=== PATIENT | female | born 1965 | race Two or more races ===

== ENCOUNTER 2024-05-19 11:28 | Inpatient (IN) | payer BC ==
--- NOTE | 2024-05-19 12:03 | ED ---
Abdominal Pain HPI - General Chief Complaint: Abdominal Pain Stated Complaint: abd pain Time Seen by Provider: 05/19/24 12:01 Source: patient, RN notes reviewed Mode of arrival: ambulatory Limitations: no limitations - History of Present Illness Initial Comments: This is a 59-year-old female who presents to the emergency department for abdominal pain. Patient reports right lower quadrant pain over the last 3 days. She has associated nausea, vomiting, and diarrhea. Reports occasional fevers as well. Pain does not radiate into the back. Denies any history of similar pain in the past. MD Complaint: abdominal pain - Related Data Home Medications Medication Instructions Recorded Confirmed Ibuprofen [Motrin Ib] 200 - 800 mg PO Q8H PRN 05/19/24 05/19/24 Allergies Allergy/AdvReac Type Severity Reaction Status Date / Time erythromycin base Allergy Rash/Hives Verified 05/19/24 14:58 Review of Systems ROS Statement: Those systems with pertinent positive or pertinent negative responses have been documented in the HPI. ROS Other: All systems not noted in ROS Statement are negative. Past Medical History Past Medical History: Rheumatoid Arthritis (RA) Past Surgical History: Section Smoking Status: Never smoker Past Alcohol Use History: None Reported Past Drug Use History: None Reported General Exam Limitations: no limitations General appearance: alert, in no apparent distress Head exam: Present: atraumatic, normocephalic, normal inspection Respiratory exam: Present: normal lung sounds bilaterally. Absent: respiratory distress, wheezes, rales, rhonchi, stridor Cardiovascular Exam: Present: regular rate, normal rhythm, normal heart sounds. Absent: systolic murmur, diastolic murmur, rubs, gallop, clicks GI/Abdominal exam: Present: soft, tenderness (RLQ), normal bowel sounds. Absent: distended Neurological exam: Present: alert, oriented X3, CN II-XII intact Psychiatric exam: Present: normal affect, normal mood Skin exam: Present: warm, dry, intact, normal color. Absent: rash Course Vital Signs 05/19/24 05/19/24 11:38 14:40 Temperature 98 F 97.9 F Pulse Rate 97 88 Respiratory 16 16 Rate Blood Pressure 151/77 142/76 O2 Sat by Pulse 97 94 L Oximetry Medical Decision Making - Medical Decision Making This is a 59 year old female who presents to the emergency department for abdominal pain. Was pt. sent in by a medical professional or institution? @ -No Did you speak to anyone other than the patient for history? @ -No Did you review nursing and triage notes? @ -Yes, and I agree, it is accurate with regards to the patient's symptoms. Were old charts reviewed? @ -No Differential Diagnosis? @ -Differential Abdominal Pain Women: Appendicitis, Cholecystitis, diverticulosis, ischemic bowel, pancreatitis, hepatitis, UTI, gastroenteritis, AAA, incarcerated hernia, bowel obstruction, constipation, inflammatory bowel, hepatitis, peptic ulcer disease, splenic infarction, perforated viscus, vulvitis, ovarian torsion, PID, kidney stone, placenta abruption, this is not meant to be an all-inclusive list EKG interpreted by me (3pts min.)? @ -EKG interpreted by me demonstrating the following: X-rays interpreted by me (1pt min.)? @ -Not obtained CT interpreted by me (1pt min.)? @ -CT scan of the abdomen and pelvis obtained. My interpretation identifies a fluid-filled appendix. U/S interpreted by me (1pt. min.)? @ -Not obtained What testing was considered but not performed? (CT, X-rays, U/S, labs)? Why? @ -None What meds were considered but not given? Why? @ -None Did you discuss the management of the patient with other professionals? @ -Yes, Dr. Ryder, who accepts the patient for admission. Did you reconcile home meds? @ -No Was smoking cessation discussed for >3mins.? @ -No Was critical care preformed (if so, how long)? @ -No Were there social determinants of health that impacted care today? How? (Homelessness, low income, unemployed, alcoholism, drug addiction, transportation, low edu. Level, literacy, decrease access to med. care, correction, rehab)? @ -No Was there de-escalation of care discussed even if they declined? (Discuss DNR or withdrawal of care, Hospice)? @ -No What co-morbidities impacted this encounter? (DM, HTN, Smoking, COPD, CAD, Cancer, CVA, Hep., AIDS, mental health diagnosis, sleep apnea, morbid obesity)? @ -None Was patient admitted / discharged? @ -Admitted. Lab work demonstrates mild leukocytosis and was otherwise fairly unremarkable. She has a mild elevation in bilirubin at 2.1. Urine suggests pyuria/UTI. Urine sent for culture. CT scan of the abdomen and pelvis obtained demonstrating acute appendicitis complicated by localized perforation. There is an early organizing fluid collection. No remote free air is visualized. Blood cultures obtained and the patient was started on Zosyn and maintenance fluids. Patient admitted to general surgery for further management and surgical intervention. She was kept NPO. Consult placed for medicine and infectious disease. Undiagnosed new problem with uncertain prognosis? @ -None Drug Therapy requiring intensive monitoring for toxicity (Heparin, Nitro, Insulin, Cardizem)? @ -None Were any procedures done? @ -None Diagnosis/symptom? @ -Perforated appendicitis Acute, or Chronic, or Acute on Chronic? @ -Acute Uncomplicated (without systemic symptoms) or Complicated (systemic symptoms)? @ -Complicated Side effects of treatment? @ -None Exacerbation, Progression, or Severe Exacerbation] @ -Not applicable Poses a threat to life or bodily function? @ -Yes, can lead to sepsis and This case was discussed in detail with the attending ED physician, Dr. Concepcion. Presentation, findings, and treatment plan discussed in detail as well. - Lab Data Result diagrams: 05/19/24 13:51 05/19/24 12:22 Lab Results 05/19/24 05/19/24 05/19/24 Range/Units 12:22 12:22 13:51 WBC 11.3 H (3.8-10.6) k/uL RBC 4.70 (3.80-5.40) m/uL Hgb 13.4 (11.4-16.0) gm/dL Hct 40.1 (34.0-46.0) % MCV 85.4 (80.0-100.0) fL MCH 28.6 (25.0-35.0) pg MCHC 33.5 (31.0-37.0) g/dL RDW 13.1 (11.5-15.5) % Plt Count 262 (150-450) k/uL MPV 7.3 Neutrophils % 79 % Lymphocytes % 12 % Monocytes % 6 % Eosinophils % 1 % Basophils % 0 % Neutrophils # 8.9 H (1.3-7.7) k/uL Lymphocytes # 1.4 (1.0-4.8) k/uL Monocytes # 0.7 (0-1.0) k/uL Eosinophils # 0.2 (0-0.7) k/uL Basophils # 0.0 (0-0.2) k/uL Sodium 137 (137-145) mmol/L Potassium 4.0 (3.5-5.1) mmol/L Chloride 104 (98-107) mmol/L Carbon Dioxide 18 L (22-30) mmol/L Anion Gap 15 mmol/L BUN 24 H (7-17) mg/dL Creatinine 0.54 (0.52-1.04) mg/dL Est GFR (CKD-EPI)AfAm >90 (>60 ml/min/1.73 sqM) Est GFR (CKD-EPI)NonAf >90 (>60 ml/min/1.73 sqM) Glucose 107 H (74-99) mg/dL Plasma Lactic Acid Asa (0.7-2.0) mmol/L Calcium 9.2 (8.4-10.2) mg/dL Total Bilirubin 2.1 H (0.2-1.3) mg/dL AST 21 (14-36) U/L ALT 15 (4-34) U/L Alkaline Phosphatase 113 (38-126) U/L Total Protein 8.1 (6.3-8.2) g/dL Albumin 4.2 (3.5-5.0) g/dL Amylase 50 (30-110) U/L Lipase 42 (23-300) U/L Urine Color Yellow Urine Appearance Cloudy H (Clear) Urine pH 6.5 (5.0-8.0) Ur Specific Redfield 1.029 (1.001-1.035) Urine Protein 2+ H (Negative) Urine Glucose (UA) Negative (Negative) Urine Ketones 3+ H (Negative) Urine Blood Trace H (Negative) Urine Nitrite Negative (Negative) Urine Bilirubin 1+ H (Negative) Urine Urobilinogen 3.0 (<2.0) mg/dL Ur Leukocyte Esterase Large H (Negative) Urine RBC 3 (0-5) /hpf Urine WBC 82 H (0-5) /hpf Ur Squamous Epith Cells 3 (0-4) /hpf Urine Mucus Many H (None) /hpf 05/19/24 Range/Units 13:51 WBC (3.8-10.6) k/uL RBC (3.80-5.40) m/uL Hgb (11.4-16.0) gm/dL Hct (34.0-46.0) % MCV (80.0-100.0) fL MCH (25.0-35.0) pg MCHC (31.0-37.0) g/dL RDW (11.5-15.5) % Plt Count (150-450) k/uL MPV Neutrophils % % Lymphocytes % % Monocytes % % Eosinophils % % Basophils % % Neutrophils # (1.3-7.7) k/uL Lymphocytes # (1.0-4.8) k/uL Monocytes # (0-1.0) k/uL Eosinophils # (0-0.7) k/uL Basophils # (0-0.2) k/uL Sodium (137-145) mmol/L Potassium (3.5-5.1) mmol/L Chloride (98-107) mmol/L Carbon Dioxide (22-30) mmol/L Anion Gap mmol/L BUN (7-17) mg/dL Creatinine (0.52-1.04) mg/dL Est GFR (CKD-EPI)AfAm (>60 ml/min/1.73 sqM) Est GFR (CKD-EPI)NonAf (>60 ml/min/1.73 sqM) Glucose (74-99) mg/dL Plasma Lactic Acid Asa 1.1 (0.7-2.0) mmol/L Calcium (8.4-10.2) mg/dL Total Bilirubin (0.2-1.3) mg/dL AST (14-36) U/L ALT (4-34) U/L Alkaline Phosphatase (38-126) U/L Total Protein (6.3-8.2) g/dL Albumin (3.5-5.0) g/dL Amylase (30-110) U/L Lipase (23-300) U/L Urine Color Urine Appearance (Clear) Urine pH (5.0-8.0) Ur Specific Redfield (1.001-1.035) Urine Protein (Negative) Urine Glucose (UA) (Negative) Urine Ketones (Negative) Urine Blood (Negative) Urine Nitrite (Negative) Urine Bilirubin (Negative) Urine Urobilinogen (<2.0) mg/dL Ur Leukocyte Esterase (Negative) Urine RBC (0-5) /hpf Urine WBC (0-5) /hpf Ur Squamous Epith Cells (0-4) /hpf Urine Mucus (None) /hpf - Radiology Data Radiology results: report reviewed, image reviewed Disposition Clinical Impression: Appendicitis with perforation Disposition: ADMITTED IP TO THIS HOSP
[2024-05-19 12:47] LABS: Appearance,Urine Cloudy (Clear); Bilirubin,Urine 1+ (Negative); Blood,Urine Trace (Negative); Color,Urine Yellow; Glucose,Urine (UA) Negative (Negative); Ketones,Urine 3+ (Negative); Leukocyte Esterase,Urine Large (Negative); Mucus,Urine Many /hpf; Nitrite,Urine Negative (Negative); PH, Urine 6.5 (5.0-8.0); Protein,Urine 2+ (Negative); RBC,Urine 3 /hpf (0-5); Specific Gravity,Urine 1.029 (1.001-1.035); Squamous Epithelial Cell,Urine 3 /hpf (0-4); WBC,Urine 82 /hpf (0-5)
[2024-05-19 13:08] LABS: ALT 15 U/L (4-34); AST 21 U/L (14-36); African American GFR (CKD) >90 (>60 ml/min/1.73 sqM); Albumin 4.2 g/dL (3.5-5.0); Alkaline Phosphatase 113 U/L (38-126); Amylase 50 U/L (30-110); Anion Gap 15 mmol/L; Blood Urea Nitrogen 24 mg/dL (7-17); Calcium 9.2 mg/dL (8.4-10.2); Carbon Dioxide 18 mmol/L (22-30); Chloride 104 mmol/L (98-107); Glucose 107 mg/dL (74-99); Lipase 42 U/L (23-300); Non-African American GFR(CKD) >90 (>60 ml/min/1.73 sqM); Sodium 137 mmol/L (137-145); Total Bilirubin 2.1 mg/dL (0.2-1.3); Total Protein 8.1 g/dL (6.3-8.2)
[2024-05-19] MEDS: SODIUM CHLORIDE 0.9% 1,000 ML IV STA ×3 (13:54→18:38)
[2024-05-19] MEDS: ONDANSETRON 4 MG/2 ML VIAL IVP STA (13:57)
[2024-05-19] MEDS: KETOROLAC 15 MG/ML 1 ML VIAL IVP STA (14:00)
[2024-05-19 14:04] LABS: Basophils % (A) 0 %; Eosinophils # (A) 0.2 k/uL (0-0.7); Eosinophils % (A) 1 %; HCT 40.1 % (34.0-46.0); HGB 13.4 gm/dL (11.4-16.0); Lymphocytes # (A) 1.4 k/uL (1.0-4.8); Lymphocytes % (A) 12 %; MCH 28.6 pg (25.0-35.0); MCHC 33.5 g/dL (31.0-37.0); MCV 85.4 fL (80.0-100.0); Mean Platelet Volume 7.3; Monocytes # (A) 0.7 k/uL (0-1.0); Monocytes % (A) 6 %; Neutrophils # (A) 8.9 k/uL (1.3-7.7); Neutrophils % (A) 79 %; Platelet Count 262 k/uL (150-450); RDW 13.1 % (11.5-15.5); WBC 11.3 k/uL (3.8-10.6)
--- NOTE | 2024-05-19 14:19 | CT ---
EXAMINATION TYPE: CT abdomen pelvis w con DATE OF EXAM: 05/19/2024 COMPARISON: NONE HISTORY: 59-year-old female RLQ pain TECHNIQUE: Contiguous axial scanning of the abdomen and pelvis following administration of 100 ml Iso marli 300 IV contrast. Delayed images through the kidneys and coronal/sagittal reconstructions perform ed. CT DLP: 2261.8 mGycm Automated exposure control for dose reduction was used. FINDINGS: The heart is normal size without pericardial effusion. Strandy atelectasis/scarring at the lower lobe s. No pleural effusion. Liver borderline enlarged at 17.3 cm. Low attenuation of the hepatic parenchyma suggesting some under lying fatty infiltration. Tiny 5 mm hypodensity anterior mid liver probably a tiny cyst. Gallbladder hydropic at 5.0 cm wide but without any surrounding inflammation. Probably relates to fas ting state. Portal venous system is patent. No biliary ductal dilatation. Adrenal glands, kidneys, spleen, and pancreas within normal limits. Retroaortic left renal vein. No dilated small bowel, free fluid, or free air. Some tracking edema and moderate inflammation locali zes to the right lower quadrant where the appendix is abnormal, thickened, fluid-filled with a 7 mm a ppendicolith at the base of the appendix and with some devascularization of the appendiceal wall near the tip. There is a local perforation and fluid collection measuring 5.5 x 2.1 x 3.2 cm. The treadwell a re not well-defined at this time. Bladder is collapsed. Uterus retroverted. Both ovaries are visualized. No abnormal fluid collection i n the pelvis or pelvic lymphadenopathy. Bones: Hypertrophic facet arthropathy mid to lower lumbar spine with degenerative grade 1 anterolisth esis L5-S1. IMPRESSION: EXAM POSITIVE FOR ACUTE APPENDICITIS. COMPLICATED BY LOCALIZED PERFORATION. EARLY ORGANIZING FLUID CO LLECTION MEASURING 5.5 X 2.1 X 2.2 CM. NO REMOTE FREE AIR IS SEEN.
[2024-05-19] MEDS ORDERED: HYDROmorphone 0.5 MG/0.5 ML SYRINGE IVP PRN ×2 (14:32→16:52)
[2024-05-19] MEDS ORDERED: ONDANSETRON 4 MG/2 ML VIAL IVP PRN (14:32)
[2024-05-19] MEDS ORDERED: NALOXONE 0.4 MG/ML 1 ML VIAL IV PRN ×2 (14:32→16:52)
[2024-05-19] MEDS ORDERED: ACETAMINOPHEN IV (For NPO) 1,000 MG in EMPTY BAG 1 BAG IVPB PRN (14:39)
[2024-05-19] MEDS: MORPHINE SULFATE 4 MG/ML SYRINGE IVP STA (14:51)
[2024-05-19] MEDS: IV FLUID CONTINUATION 1,000 ML IV ONE (15:06)
--- NOTE | 2024-05-19 15:31 | P.GSHP ---
History of Present Illness H&P Date: 05/19/24 Chief Complaint: Appendicitis This is a 59-year-old female with a 4-day history of bilateral quadrant pain gerd patient was seen emergency room. Her CAT scan suggestive of appendicitis. There is question there may be perforation of the tip of the appendix. Past Medical History Past Medical History: Rheumatoid Arthritis (RA) Past Surgical History: Section Smoking Status: Never smoker Past Alcohol Use History: None Reported Past Drug Use History: None Reported Medications and Allergies Home Medications Medication Instructions Recorded Confirmed Type Ibuprofen [Motrin Ib] 200 - 800 mg PO Q8H PRN 05/19/24 05/19/24 History Allergies Allergy/AdvReac Type Severity Reaction Status Date / Time erythromycin base Allergy Rash/Hives Verified 05/19/24 14:58 Surgical - Exam Vital Signs Temp Pulse Resp BP Pulse Ox 98 F 97 16 151/77 97 05/19/24 11:38 05/19/24 11:38 05/19/24 11:38 05/19/24 11:38 05/19/24 11:38 - General well developed, well nourished, no distress - Eyes PERRL - ENT normal pinna - Neck no masses - Respiratory normal expansion - Cardiovascular Rhythm: regular - Abdomen Abdomen: soft, non tender Results - Labs 05/19/24 13:51 05/19/24 12:22 Abnormal Lab Results - Last 24 Hours (Table) 05/19/24 05/19/24 05/19/24 Range/Units 12:22 12:22 13:51 WBC 11.3 H (3.8-10.6) k/uL Neutrophils # 8.9 H (1.3-7.7) k/uL Carbon Dioxide 18 L (22-30) mmol/L BUN 24 H (7-17) mg/dL Glucose 107 H (74-99) mg/dL Total Bilirubin 2.1 H (0.2-1.3) mg/dL Urine Appearance Cloudy H (Clear) Urine Protein 2+ H (Negative) Urine Ketones 3+ H (Negative) Urine Blood Trace H (Negative) Urine Bilirubin 1+ H (Negative) Ur Leukocyte Esterase Large H (Negative) Urine WBC 82 H (0-5) /hpf Urine Mucus Many H (None) /hpf Diabetes panel 05/19/24 Range/Units 12:22 Sodium 137 (137-145) mmol/L Potassium 4.0 (3.5-5.1) mmol/L Chloride 104 (98-107) mmol/L Carbon Dioxide 18 L (22-30) mmol/L BUN 24 H (7-17) mg/dL Creatinine 0.54 (0.52-1.04) mg/dL Glucose 107 H (74-99) mg/dL Calcium 9.2 (8.4-10.2) mg/dL AST 21 (14-36) U/L ALT 15 (4-34) U/L Alkaline Phosphatase 113 (38-126) U/L Total Protein 8.1 (6.3-8.2) g/dL Albumin 4.2 (3.5-5.0) g/dL Calcium panel 05/19/24 Range/Units 12:22 Calcium 9.2 (8.4-10.2) mg/dL Albumin 4.2 (3.5-5.0) g/dL Pituitary panel 05/19/24 Range/Units 12:22 Sodium 137 (137-145) mmol/L Potassium 4.0 (3.5-5.1) mmol/L Chloride 104 (98-107) mmol/L Carbon Dioxide 18 L (22-30) mmol/L BUN 24 H (7-17) mg/dL Creatinine 0.54 (0.52-1.04) mg/dL Glucose 107 H (74-99) mg/dL Calcium 9.2 (8.4-10.2) mg/dL Adrenal panel 05/19/24 Range/Units 12:22 Sodium 137 (137-145) mmol/L Potassium 4.0 (3.5-5.1) mmol/L Chloride 104 (98-107) mmol/L Carbon Dioxide 18 L (22-30) mmol/L BUN 24 H (7-17) mg/dL Creatinine 0.54 (0.52-1.04) mg/dL Glucose 107 H (74-99) mg/dL Calcium 9.2 (8.4-10.2) mg/dL Total Bilirubin 2.1 H (0.2-1.3) mg/dL AST 21 (14-36) U/L ALT 15 (4-34) U/L Alkaline Phosphatase 113 (38-126) U/L Total Protein 8.1 (6.3-8.2) g/dL Albumin 4.2 (3.5-5.0) g/dL Assessment and Plan Assessment: Acute appendicitis with possible rupture. Patient be scheduled for laparoscopic appendectomy
[2024-05-19] MEDS: HEPARIN SODIUM,PORCINE 5,000 UNIT/ML 1 ML VIAL SQ STA (15:33)
[2024-05-19] MEDS ORDERED: fentaNYL (PF) 50 MCG/ML 2 ML AMP ONE (15:52)
[2024-05-19] MEDS ORDERED: PROPOFOL 10 MG/ML 20 ML VIAL IV ONE (15:52)
[2024-05-19] MEDS ORDERED: NEOSTIGMINE 1 MG/ML 10 ML VIAL ONE (15:52)
[2024-05-19] MEDS: LIDOCAINE 1%-EPI 1:100,000 20 ML VIAL SQ ONE ×2 (15:52→16:17)
[2024-05-19] MEDS ORDERED: GLYCOPYRROLATE 0.2 MG/ML 2 ML VIAL ONE (15:52)
[2024-05-19] MEDS ORDERED: SUCCINYLCHOLINE CHLORIDE 200 MG/10 ML VIAL IV ONE (15:52)
[2024-05-19] MEDS ORDERED: MIDAZOLAM 2 MG/2 ML VIAL ONE (15:52)
[2024-05-19] MEDS ORDERED: ROCURONIUM 10 MG/ML (5 ML VIAL) IV ONE (15:52)
[2024-05-19] MEDS ORDERED: LIDOCAINE 1% INJ 10MG/ML (20 ML MDV) ONE (15:52)
[2024-05-19] MEDS ORDERED: HYDROmorphone (PF) 1 MG/ML ONE (15:52)
[2024-05-19] MEDS: SODIUM CHLORIDE 0.9% 100 ML with ceFAZolin 2,000 MG IV ONE (15:57)
[2024-05-19] MEDS: LACTATED RINGERS 1,000 ML IV ONE (16:24)
[2024-05-19] MEDS ORDERED: ACETAMINOPHEN TAB 325 MG TAB PO PRN (16:52)
[2024-05-19] MEDS ORDERED: HYDROmorphone 1 MG/ML 1 ML SYRINGE IVP PRN (16:52)
--- NOTE | 2024-05-19 16:52 | P.OP ---
Date of Procedure: 05/19/24 Preoperative Diagnosis: Acute appendicitis Postoperative Diagnosis: Perforated acute appendicitis with abscess Procedure(s) Performed: Open appendectomy Anesthesia: DENNIS Surgeon: Brant Ryder Estimated Blood Loss (ml): 25 Pathology: other (Appendix, culture) Condition: stable Disposition: PACU Description of Procedure: The patient placed on the operative table in the supine position. She received general endotracheal tube anesthesia. Her abdomen was prepped and draped in the usual sterile fashion. A supraumbilical skin incision was made. And then using a pair of Kamila clamps the fascia was grasped. And then the Veress needle was positioned in the peritoneal cavity. Position of the Veress needle confirmed with a positive drop test. The abs insufflated. After adequate insufflation a 5 mm trocar was placed in the para cavity. The abdomen was viewed. There is inflammatory change of the right lower quadrant. A second 10 mm trocar was placed in the epigastric position. The omentum was peeled away from the abdominal wall. There was an abscess cavity entered. 3. Reperforation appendix. At this point the procedure was converted to an open procedure. The trocars were withdrawn. The skin was incised the midline. Then use electrocautery to abdominal wall was divided. Then the abdominal wall retractor placed the wound. The cecum was mobilized towards midline. And then the appendix was visualized. There appeared to be gangrenous appendicitis with perforation. The area was cultured. Using the harmonic scissors the mesoappendix was divided. And then the inflammatory changes extended to the base of the cecum. A portion of healthy cecum was taken with the appendix. The cecum was divided with the YASMIN stapler. The abdomen. There is no bleeding seen. A MARY drain was placed in the right lower quadrant. This was brought out through an epigastric stab incision. The fascia was closed with looped #1 PDS suture. Skin was closed kelly. And then the Prevena wound system was placed on top of the close stable skin. Patient was sent to recovery room in stable condition.
[2024-05-19] MEDS: HYDROmorphone 0.5 MG/0.5 ML SYRINGE IVP PRN (17:27)
[2024-05-19] MEDS: LACTATED RINGERS 1,000 ML IV SCH (18:10)
[2024-05-19] MEDS: PIPERACILLIN-TAZOBACTAM 3.375 GM in SODIUM CHLORIDE 0.9% 100 ML IVPB SCH (18:37)
[2024-05-19] MEDS: KETOROLAC 15 MG/ML 1 ML VIAL IVP SCH (18:38)
[2024-05-19] MEDS: HYDROmorphone 1 MG/ML 1 ML SYRINGE IVP PRN (18:54)
[2024-05-19] MEDS: HYDROcodone/APAP 5-325MG 1 EACH TAB PO PRN (19:51)
[2024-05-19 19:59] LABS: Partial Thromboplastin Time 25.2 sec (22.0-30.0)
--- NOTE | 2024-05-19 23:51 | P.CONS ---
History of Present Illness - Reason for Consult Consult date: 05/19/24 Postoperative medical management - Chief Complaint Abdominal pain - History of Present Illness 59-year-old female with history of rheumatoid arthritis Patient coming in with 3-day history of progressive worsening abdominal pain associated with nausea vomiting and diarrhea upon further evaluation in the ED she was found to have perforated appendicitis for which she was admitted to general surgery she underwent laparotomy tolerated well no observed immediate postoperative complications currently had a wound VAC in place and MARY drain patient continues to be n.p.o. has not passed bowel movement yet patient has not urinated yet She reports that pain is well-tolerated denies any chest pain trouble breathing Patient denies tobacco smoking illicit drugs or heavy alcohol review of systems Pertinent positives as noted in HPI. All other systems were reviewed and are negative on exam Constitutional: No acute distress, conversant, pleasant Eyes: Anicteric sclerae, moist conjunctiva, Pupils equal round reactive to light ENMT: NC/AT Oropharynx clear, no erythema, or exudates Neck: Supple, no masses, or JVD No carotid bruits No thyromegaly Lungs: Clear to auscultation Clear to percussion Normal respiratory effort, no accessory muscle use Cardiovascular: Heart regular in rate and rhythm, No murmurs, gallops, or rubs No peripheral edema Abdominal: Soft Nontender, no guarding, rebound or rigidity Bowel sounds negative Wound VAC in place over laparotomy incision MARY drain in place half filled with bloody tinged fluid Extremities: No digital cyanosis No clubbing Pedal pulses intact and symmetrical Radial pulses intact and symmetrical No calf tenderness Psychiatric: Alert and oriented to person, place and time Appropriate affect fair judgement Neuro Muscles Strength 5/5 in all 4 extremities Sensation to light touch grossly present throughout Cranial nerves II-XII grossly intact Past Medical History Past Medical History: Rheumatoid Arthritis (RA) Past Surgical History: Section Smoking Status: Never smoker Past Alcohol Use History: None Reported Past Drug Use History: None Reported Medications and Allergies Home Medications Medication Instructions Recorded Confirmed Type Ibuprofen [Motrin Ib] 200 - 800 mg PO Q8H PRN 05/19/24 05/19/24 History Allergies Allergy/AdvReac Type Severity Reaction Status Date / Time erythromycin base Allergy Rash/Hives Verified 05/19/24 14:58 Physical Exam Vitals: Vital Signs Temp Pulse Pulse Resp BP BP Pulse Ox 05/19/24 19:45 17 05/19/24 18:39 97.7 F 87 18 147/80 97 05/19/24 18:03 78 12 144/66 96 05/19/24 17:48 75 12 132/64 96 05/19/24 17:33 74 12 133/60 97 05/19/24 17:18 79 16 134/65 100 05/19/24 17:03 97.2 F L 91 16 126/66 99 05/19/24 15:04 97.1 F L 94 18 135/68 96 05/19/24 14:40 97.9 F 88 16 142/76 94 L 05/19/24 11:38 98 F 97 16 151/77 97 Intake and Output 05/19/24 05/19/24 05/20/24 14:59 22:59 06:59 Intake Total 1250 Output Total 10 460 Balance 1240 -460 Intake: IV 1250 Output: Drainage 60 Right Abdomen 60 Urine 400 Straight 400 Estimated Blood Loss 10 Other: Weight 117.934 kg 117.934 kg Results CBC & Chem 7: 05/19/24 13:51 05/19/24 12:22 Labs: Abnormal Lab Results - Last 24 Hours (Table) 05/19/24 05/19/24 05/19/24 Range/Units 12:22 12:22 13:51 WBC 11.3 H (3.8-10.6) k/uL Neutrophils # 8.9 H (1.3-7.7) k/uL Carbon Dioxide 18 L (22-30) mmol/L BUN 24 H (7-17) mg/dL Glucose 107 H (74-99) mg/dL Total Bilirubin 2.1 H (0.2-1.3) mg/dL Urine Appearance Cloudy H (Clear) Urine Protein 2+ H (Negative) Urine Ketones 3+ H (Negative) Urine Blood Trace H (Negative) Urine Bilirubin 1+ H (Negative) Ur Leukocyte Esterase Large H (Negative) Urine WBC 82 H (0-5) /hpf Urine Mucus Many H (None) /hpf Assessment and Plan Assessment: Acute perforated appendicitis status post laparotomy and appendectomy postoperative day 0 Management per general surgery team Continue with antibiotics with Zosyn 3.375 IV piggyback every 8 hours Status post 2 L boluses of normal saline continue with normal saline at 130 cc/h Continue with Protonix 40 mg IV daily Symptomatic control of nausea vomiting with Zofran as needed Pain control with Dilaudid as needed DVT prophylaxis with Lovenox 40 mg subcu daily Tylenol as needed for fever Blood work reviewed White count elevated 11.3 most likely secondary to underlying appendicitis Hemoglobin unremarkable 13.4 Renal function unremarkable sodium 137 potassium 4 BUN [address] of the abdomen done in the ED showed positive acute appendicitis complicated by localized perforation along with early organizing fluid collection measuring 5 x 2 x 2 cm No free air seen Overall patient stable from medical standpoint Thank you for this consultation
[2024-05-19] MEDS ORDERED: BENZOCAINE/MENTHOL LOZENG 1 EACH LOZENGE MUCOUS MEM PRN (23:52)
--- NOTE | 2024-05-20 07:07 | P.CONS ---
History of Present Illness - Reason for Consult Consult date: 05/19/24 Perforated appendicitis Requesting physician: Ursula Ortiz - Chief Complaint Abdominal pain x 3 days - History of Present Illness Patient is a 59-year-old female with a past medical history significant for rheumatoid arthritis presenting to the hospital this afternoon for evaluation of abdominal pain patient pain has been in the right lower quadrant for the last 3 days before presentation to the hospital patient was describing the pain to be sharp intensity moderate to severe with some radiation to the back did have associated nausea and vomiting diarrhea and also have some fever with the send the patient has been evaluated by the ER physician on arriv al to the ER patient was afebrile no fever have recorded subsequently patient was nontachycardic hypotensive or hypoxic patient did have a white count of 11.3 creatinine 0.54 electrolytes normal liver enzymes normal urine has been mildly positive patient did have a abdominal pelvis CT concerning for acute appendicitis complicated by localized perforation early organizing fluid collection measuring 5.5 X2.1X 2.2 cm patient has been taken to the OR and the patient is s/p open appendectomy and drainage of the abscess patient has been started on Zosyn admitted to hospital infectious disease was consulted for further management of antibiotic therapy Review of Systems Positive point and negatives has been mentioned in the HPI, complete review of systems was performed and all other systems are negative Past Medical History Past Medical History: Rheumatoid Arthritis (RA) Past Surgical History: Section Smoking Status: Never smoker Past Alcohol Use History: None Reported Past Drug Use History: None Reported Medications and Allergies Home Medications Medication Instructions Recorded Confirmed Type Ibuprofen [Motrin Ib] 200 - 800 mg PO Q8H PRN 05/19/24 05/19/24 History Allergies Allergy/AdvReac Type Severity Reaction Status Date / Time erythromycin base Allergy Rash/Hives Verified 05/19/24 14:58 Physical Exam Vitals: Vital Signs Temp Pulse Pulse Resp BP BP Pulse Ox 05/19/24 15:04 97.1 F L 94 18 135/68 96 05/19/24 14:40 97.9 F 88 16 142/76 94 L 05/19/24 11:38 98 F 97 16 151/77 97 Intake and Output 05/19/24 05/19/24 05/19/24 06:59 14:59 22:59 Intake Total 1100 Output Total 10 Balance 1090 Intake: IV 1100 Output: Estimated Blood Loss 10 Other: Weight 117.934 kg GENERAL DESCRIPTION: Middle-aged female lying in bed, no distress. No tachypnea or accessory muscle of respiration use. HEENT: Shows Pallor , no scleral icterus. Oral mucous membrane is dry. No phary ngeal erythema or thrush NECK: Trachea central, no thyromegaly. LUNGS: Unlabored breathing. Clear to auscultation anteriorly. No wheeze or crackle. HEART: S1, S2, regular rate and rhythm. No loud murmur ABDOMEN: Soft, mild distention and tenderness EXTREMITIES: No edema of feet. SKIN: No rash, no masses palpable. NEUROLOGICAL: The patient is awake, alert, oriented x3, mood and affect normal. Results CBC & Chem 7: 05/19/24 13:51 05/19/24 12:22 Labs: Abnormal Lab Results - Last 24 Hours (Table) 05/19/24 05/19/24 05/19/24 Range/Units 12:22 12:22 13:51 WBC 11.3 H (3.8-10.6) k/uL Neutrophils # 8.9 H (1.3-7.7) k/uL Carbon Dioxide 18 L (22-30) mmol/L BUN 24 H (7-17) mg/dL Glucose 107 H (74-99) mg/dL Total Bilirubin 2.1 H (0.2-1.3) mg/dL Urine Appearance Cloudy H (Clear) Urine Protein 2+ H (Negative) Urine Ketones 3+ H (Negative) Urine Blood Trace H (Negative) Urine Bilirubin 1+ H (Negative) Ur Leukocyte Esterase Large H (Negative) Urine WBC 82 H (0-5) /hpf Urine Mucus Many H (None) /hpf Assessment and Plan (1) Peritonitis Current Visit: Yes Status: Acute Code(s): K65.9 - PERITONITIS, UNSPECIFIED SNOMED Code(s): 08992069 (2) Intra-abdominal abscess Current Visit: Yes Status: Acute Code(s): K65.1 - PERITONEAL ABSCESS SNOMED Code(s): 63344387 (3) Erythromycin allergy Current Visit: Yes Status: Acute Code(s): Z88.1 - ALLERGY STATUS TO OTHER ANTIBIOTIC AGENTS SNOMED Code(s): 79119779 (4) Appendicitis with perforation Current Visit: Yes Status: Acute Code(s): K35.32 - AC APPENDICITIS W PERF, LOC PERITONITIS, & GANGR, W/O ABSCS SNOMED Code(s): 40319478 Plan: 1patient presenting to hospital with abdominal pain x 3 days and this patient has been diagnosed with a perforated appendicitis and periappendiceal abscess status post open appendectomy and drainage of the abscess we will need to cover for the enteric gram-negative both anaerobes and anaerobes to the likely pathogen 2-Zosyn 3.375 g every 8 hours should provide adequate antibiotic therapy empirically while waiting for the culture to finalize We will follow on clinical condition and cultures to further adjust medication if needed Thank you for this consultation we will follow the patient along with you Dictation was produced using [employer] dictation software. please excuse any grammatical, word or spelling errors. Time with Patient: Greater than 30
[2024-05-20] MEDS: ENOXAPARIN 40 MG/0.4 ML SYRINGE SQ SCH (09:00)
[2024-05-20] MEDS: PANTOPRAZOLE 40 MG/10 ML VIAL IV SCH (09:00)
[2024-05-20 10:08] LABS: Basophils % (A) 0 %; Eosinophils % (A) 0 %; HCT 36.2 % (34.0-46.0); HGB 11.9 gm/dL (11.4-16.0); Lymphocytes # (A) 0.7 k/uL (1.0-4.8); Lymphocytes % (A) 8 %; MCH 28.7 pg (25.0-35.0); MCHC 32.7 g/dL (31.0-37.0); MCV 87.7 fL (80.0-100.0); Mean Platelet Volume 7.4; Monocytes # (A) 0.7 k/uL (0-1.0); Monocytes % (A) 7 %; Neutrophils # (A) 7.9 k/uL (1.3-7.7); Neutrophils % (A) 82 %; Platelet Count 254 k/uL (150-450); RBC 4.13 m/uL (3.80-5.40); RDW 13.3 % (11.5-15.5); WBC 9.6 k/uL (3.8-10.6)
[2024-05-20 10:24] LABS: African American GFR (CKD) >90 (>60 ml/min/1.73 sqM); Anion Gap 8 mmol/L; Blood Urea Nitrogen 23 mg/dL (7-17); Calcium 8.1 mg/dL (8.4-10.2); Carbon Dioxide 22 mmol/L (22-30); Chloride 107 mmol/L (98-107); Glucose 118 mg/dL (74-99); Magnesium 1.9 mg/dL (1.6-2.3); Non-African American GFR(CKD) >90 (>60 ml/min/1.73 sqM); Potassium 3.6 mmol/L (3.5-5.1); Sodium 137 mmol/L (137-145)
--- NOTE | 2024-05-20 11:35 | P.PN ---
Subjective Progress Note Date: 05/20/24 No new complaints today. Patient denies fevers. She does report some chills. She reports some nausea. She reports abdominal pain. Gen: In NAD, non-toxic HEENT: normocephalic, atraumatic, hearing acuity is intant, mucous membranes moist CVS: perfusing all extremities well, no pitting edema, Respiratory: symmetric chest expansion, no accessory muscle use, GI: soft, diffuse tenderness to palpation, ND, : no suprapubic tenderness, no CVA tenderness MSK/Derm: no rashes, cyanosis Neuro: CN II-XII intact, no motor weakness, Psych: cooperative, euthymic mood, judgment and insight is intact Hospital workup: Blood work reviewed White count elevated 11.3 most likely secondary to underlying appendicitis Hemoglobin unremarkable 13.4 Renal function unremarkable sodium 137 potassium 4 BUN [address] of the abdomen done in the ED showed positive acute appendicitis complicated by localized perforation along with early organizing fluid collection measuring 5 x 2 x 2 cm No free air seen Assessment/plan: Acute perforated appendicitis status post laparotomy and appendectomy postoperat ino day 1 Management per general surgery team Continue with antibiotics with Zosyn 3.375 IV piggyback every 8 hours, pending microbiology Status post 2 L boluses of normal saline continue with normal saline at 130 cc/h Continue with Protonix 40 mg IV daily Symptomatic control of nausea vomiting with Zofran as needed Pain control with Dilaudid as needed MARY drain still appears to have mixture of serosanguineous fluid and pus DVT prophylaxis with Lovenox 40 mg subcu daily Tylenol as needed for fever Overall patient stable from medical standpoint Thank you for this consultation Objective - Vital Signs Vital signs: Vital Signs Temp 98.9 F 05/20/24 07:20 Pulse 96 05/20/24 07:20 Resp 18 05/20/24 07:20 BP 110/65 05/20/24 07:20 Pulse Ox 94 L 05/20/24 07:20 FiO2 Intake & Output 05/19/24 05/20/24 05/20/24 18:59 06:59 18:59 Intake Total 1250 Output Total 10 460 30 Balance 1240 -460 -30 Weight 117.934 kg 117.934 kg Intake: IV 1250 Output: Drainage 60 30 Right Abdomen 60 30 Urine 400 Straight 400 Estimated Blood Loss 10 Other: # Voids 1 - Labs CBC & Chem 7: 05/20/24 09:32 05/20/24 09:32 Labs: Abnormal Lab Results - Last 24 Hours (Table) 05/19/24 05/19/24 05/19/24 Range/Units 12:22 12:22 13:51 WBC 11.3 H (3.8-10.6) k/uL Neutrophils # 8.9 H (1.3-7.7) k/uL Lymphocytes # (1.0-4.8) k/uL Carbon Dioxide 18 L (22-30) mmol/L BUN 24 H (7-17) mg/dL Glucose 107 H (74-99) mg/dL Calcium (8.4-10.2) mg/dL Total Bilirubin 2.1 H (0.2-1.3) mg/dL Urine Appearance Cloudy H (Clear) Urine Protein 2+ H (Negative) Urine Ketones 3+ H (Negative) Urine Blood Trace H (Negative) Urine Bilirubin 1+ H (Negative) Ur Leukocyte Esterase Large H (Negative) Urine WBC 82 H (0-5) /hpf Urine Mucus Many H (None) /hpf 05/20/24 05/20/24 Range/Units 09:32 09:32 WBC (3.8-10.6) k/uL Neutrophils # 7.9 H (1.3-7.7) k/uL Lymphocytes # 0.7 L (1.0-4.8) k/uL Carbon Dioxide (22-30) mmol/L BUN 23 H (7-17) mg/dL Glucose 118 H (74-99) mg/dL Calcium 8.1 L (8.4-10.2) mg/dL Total Bilirubin (0.2-1.3) mg/dL Urine Appearance (Clear) Urine Protein (Negative) Urine Ketones (Negative) Urine Blood (Negative) Urine Bilirubin (Negative) Ur Leukocyte Esterase (Negative) Urine WBC (0-5) /hpf Urine Mucus (None) /hpf Microbiology - Last 24 Hours (Table) 05/19/24 16:45 Gram Stain - Preliminary Abdomen
--- NOTE | 2024-05-20 12:19 | P.PN ---
Subjective Progress Note Date: 05/20/24 Patient states she feels tired. She has minimal complaints of pain. On exam vital signs appear stable. Abdomen is soft. Incision is clean dry intact. Status post open appendectomy for acute gangrenous appendicitis with perforation. Patient will continue receive IV antibiotics. We will advance her to clear liquids today. Objective - Vital Signs Vital signs: Vital Signs Temp 98.9 F 05/20/24 07:20 Pulse 96 05/20/24 07:20 Resp 18 05/20/24 07:20 BP 110/65 05/20/24 07:20 Pulse Ox 94 L 05/20/24 07:20 FiO2 Intake & Output 05/19/24 05/20/24 05/20/24 18:59 06:59 18:59 Intake Total 1250 Output Total 10 460 30 Balance 1240 -460 -30 Weight 117.934 kg 117.934 kg Intake: IV 1250 Output: Drainage 60 30 Right Abdomen 60 30 Urine 400 Straight 400 Estimated Blood Loss 10 Other: # Voids 1 - Labs CBC & Chem 7: 05/20/24 09:32 05/20/24 09:32 Labs: Abnormal Lab Results - Last 24 Hours (Table) 05/19/24 05/19/24 05/19/24 Range/Units 12:22 12:22 13:51 WBC 11.3 H (3.8-10.6) k/uL Neutrophils # 8.9 H (1.3-7.7) k/uL Lymphocytes # (1.0-4.8) k/uL Carbon Dioxide 18 L (22-30) mmol/L BUN 24 H (7-17) mg/dL Glucose 107 H (74-99) mg/dL Calcium (8.4-10.2) mg/dL Total Bilirubin 2.1 H (0.2-1.3) mg/dL Urine Appearance Cloudy H (Clear) Urine Protein 2+ H (Negative) Urine Ketones 3+ H (Negative) Urine Blood Trace H (Negative) Urine Bilirubin 1+ H (Negative) Ur Leukocyte Esterase Large H (Negative) Urine WBC 82 H (0-5) /hpf Urine Mucus Many H (None) /hpf 05/20/24 05/20/24 Range/Units 09:32 09:32 WBC (3.8-10.6) k/uL Neutrophils # 7.9 H (1.3-7.7) k/uL Lymphocytes # 0.7 L (1.0-4.8) k/uL Carbon Dioxide (22-30) mmol/L BUN 23 H (7-17) mg/dL Glucose 118 H (74-99) mg/dL Calcium 8.1 L (8.4-10.2) mg/dL Total Bilirubin (0.2-1.3) mg/dL Urine Appearance (Clear) Urine Protein (Negative) Urine Ketones (Negative) Urine Blood (Negative) Urine Bilirubin (Negative) Ur Leukocyte Esterase (Negative) Urine WBC (0-5) /hpf Urine Mucus (None) /hpf Microbiology - Last 24 Hours (Table) 05/19/24 16:45 Gram Stain - Preliminary Abdomen
--- NOTE | 2024-05-20 12:41 | P.PN ---
Subjective Progress Note Date: 05/20/24 Principal diagnosis: Reason for follow-up is perforated appendicitis intra-abdominal abscess Patient is a 59-year-old female with a past medical history significant for rheumatoid arthritis presenting to the hospital with 3-day history of abdominal pain has been diagnosed with a ruptured appendicitis status post open appendectomy and drainage of the abscess. On today's evaluation that is 05/20/2024,the patient denies any fever or any chills, patient is breathing comfortably on room air, the patient denies chest pain shortness of breath and no significant cough, patient abdominal pain slightly decreased intensity controlled with the pain medication no nausea no vomiting no bowel movement. Patient white normalized to 9.6, creatinine 0.59 abdominal cultures currently pending Objective - Vital Signs Vital signs: Vital Signs Temp 98.9 F 05/20/24 07:20 Pulse 96 05/20/24 07:20 Resp 18 05/20/24 07:20 BP 110/65 05/20/24 07:20 Pulse Ox 94 L 05/20/24 07:20 FiO2 Intake & Output 05/19/24 05/20/24 05/20/24 18:59 06:59 18:59 Intake Total 1250 Output Total 10 460 30 Balance 1240 -460 -30 Weight 117.934 kg 117.934 kg Intake: IV 1250 Output: Drainage 60 30 Right Abdomen 60 30 Urine 400 Straight 400 Estimated Blood Loss 10 Other: # Voids 1 - Exam GENERAL DESCRIPTION: Middle-aged female lying in bed in no distress RESPIRATORY SYSTEM: Unlabored breathing , decreased breath sounds at bases HEART: S1 S2 regular rate and rhythm , ABDOMEN: Soft , mild distention and tenderness EXTREMITIES: No edema feet - Labs CBC & Chem 7: 05/20/24 09:32 05/20/24 09:32 Labs: Abnormal Lab Results - Last 24 Hours (Table) 05/19/24 05/19/24 05/19/24 Range/Units 12:22 12:22 13:51 WBC 11.3 H (3.8-10.6) k/uL Neutrophils # 8.9 H (1.3-7.7) k/uL Lymphocytes # (1.0-4.8) k/uL Carbon Dioxide 18 L (22-30) mmol/L BUN 24 H (7-17) mg/dL Glucose 107 H (74-99) mg/dL Calcium (8.4-10.2) mg/dL Total Bilirubin 2.1 H (0.2-1.3) mg/dL Urine Appearance Cloudy H (Clear) Urine Protein 2+ H (Negative) Urine Ketones 3+ H (Negative) Urine Blood Trace H (Negative) Urine Bilirubin 1+ H (Negative) Ur Leukocyte Esterase Large H (Negative) Urine WBC 82 H (0-5) /hpf Urine Mucus Many H (None) /hpf 05/20/24 05/20/24 Range/Units 09:32 09:32 WBC (3.8-10.6) k/uL Neutrophils # 7.9 H (1.3-7.7) k/uL Lymphocytes # 0.7 L (1.0-4.8) k/uL Carbon Dioxide (22-30) mmol/L BUN 23 H (7-17) mg/dL Glucose 118 H (74-99) mg/dL Calcium 8.1 L (8.4-10.2) mg/dL Total Bilirubin (0.2-1.3) mg/dL Urine Appearance (Clear) Urine Protein (Negative) Urine Ketones (Negative) Urine Blood (Negative) Urine Bilirubin (Negative) Ur Leukocyte Esterase (Negative) Urine WBC (0-5) /hpf Urine Mucus (None) /hpf Microbiology - Last 24 Hours (Table) 05/19/24 16:45 Gram Stain - Preliminary Abdomen Assessment and Plan (1) Peritonitis Current Visit: Yes Status: Acute Code(s): K65.9 - PERITONITIS, UNSPECIFIED SNOMED Code(s): 39040335 (2) Intra-abdominal abscess Current Visit: Yes Status: Acute Code(s): K65.1 - PERITONEAL ABSCESS SNOMED Code(s): 75270241 (3) Erythromycin allergy Current Visit: Yes Status: Acute Code(s): Z88.1 - ALLERGY STATUS TO OTHER ANTIBIOTIC AGENTS SNOMED Code(s): 64499218 (4) Appendicitis with perforation Current Visit: Yes Status: Acute Code(s): K35.32 - AC APPENDICITIS W PERF, LOC PERITONITIS, & GANGR, W/O ABSCS SNOMED Code(s): 09875002 Plan: 1patient presenting to hospital with abdominal pain x 3 days and this patient has been diagnosed with a perforated appendicitis and periappendiceal abscess status post open appendectomy and drainage of the abscess we will need to cover for the enteric gram-negative both anaerobes and anaerobes to the likely pathogen 2-patient afebrile white count normalized, patient to continue with Zosyn 3.375 g every 8 hours while waiting for the culture to finalize Question concerns were answered Dictation was produced using [employer] dictation software. please excuse any grammatical, word or spelling errors. Time with Patient: Less than 30
[2024-05-20] MEDS: MELATONIN 5 MG TABLET PO SCH (21:23)
[2024-05-21] MEDS: ONDANSETRON 4 MG/2 ML VIAL IVP PRN (00:13)
[2024-05-21 08:47] LABS: Basophils # (A) 0.06 X 10*3/uL (0.00-0.10); Basophils % (A) 0.5 %; Eosinophils # (A) 0.16 X 10*3/uL (0.04-0.35); Eosinophils % (A) 1.2 %; HCT 36.5 % (37.2-46.3); HGB 12.4 g/dL (12.0-15.0); Lymphocytes # (A) 1.46 X 10*3/uL (0.90-5.00); Lymphocytes % (A) 11.1 %; MCH 28.2 pg (27.0-32.0); Mean Platelet Volume 10.1 FL (9.5-12.2); Monocytes # (A) 1.09 X 10*3/uL (0.20-1.00); Monocytes % (A) 8.3 %; NRBC Per 100 WBC 0 X 10*3/uL (0.00-0.01); Neutrophils # (A) 10.35 X 10*3/uL (1.80-7.70); Neutrophils % (A) 78.3 %; Platelet Count 249 X 10*3/uL (140-440); RDW 13.7 % (11.5-14.5)
[2024-05-21 09:03] LABS: BUN/Creat Ratio 29.43 Ratio (12.00-20.00); Blood Urea Nitrogen 20.6 mg/dL (9.0-27.0); Calcium 8.4 mg/dL (8.7-10.3); Chloride 101 mmol/L (96-109); Glucose 124 mg/dL (70-110); Potassium 4.1 mmol/L (3.5-5.5); Sodium 133 mmol/L (135-145)
--- NOTE | 2024-05-21 09:35 | P.PN ---
Subjective Progress Note Date: 05/21/24 Patient reports that she had more abdominal pain last night, and her MARY drain started draining more than normal. She reports that she had to have her MARY drain emptied approximately 4-5 times overnight. Her nausea had resolved by this morning, patient is able to ambulate and tolerate a clear liquid diet. But she reports she has not yet had flatus or bowel movement. She does deny fevers, chills. Microbiology still pending on this patient. Gen: In NAD, non-toxic HEENT: normocephalic, atraumatic, hearing acuity is intant, mucous membranes moist CVS: perfusing all extremities well, no pitting edema, Respiratory: symmetric chest expansion, no accessory muscle use, GI: soft, diffuse tenderness to palpation, ND, : no suprapubic tenderness, no CVA tenderness MSK/Derm: no rashes, cyanosis Neuro: CN II-XII intact, no motor weakness, Psych: cooperative, euthymic mood, judgment and insight is intact Hospital workup: Blood work reviewed White count elevated 11.3 most likely secondary to underlying appendicitis Hemoglobin unremarkable 13.4 Renal function unremarkable sodium 137 potassium 4 BUN [address] of the abdomen done in the ED showed positive acute appendicitis complicated by localized perforation along with early organizing fluid collection measuring 5 x 2 x 2 cm No free air seen Assessment/plan: Acute perforated appendicitis status post laparotomy and appendectomy postoperative day 1 Management per general surgery team Continue with antibiotics with Zosyn 3.375 IV piggyback every 8 hours, pending microbiology Status post 2 L boluses of normal saline continue with normal saline at 130 cc/h Continue with Protonix 40 mg IV daily Symptomatic control of nausea vomiting with Zofran as needed Pain control with Dilaudid as needed MARY drain still appears to have mixture of serosanguineous fluid and pus DVT prophylaxis with Lovenox 40 mg subcu daily Tylenol as needed for fever Thank you for this consultation Objective - Vital Signs Vital signs: Vital Signs Temp 98.1 F 05/21/24 07:11 Pulse 89 05/21/24 07:11 Resp 18 05/21/24 07:11 BP 108/68 05/21/24 07:11 Pulse Ox 93 L 05/21/24 07:11 FiO2 Intake & Output 05/20/24 05/21/24 05/21/24 18:59 06:59 18:59 Output Total 30 220 Balance -30 -220 Output: Drainage 30 220 Right Abdomen 30 220 Other: # Voids 2 1 - Labs CBC & Chem 7: 05/21/24 06:12 05/21/24 06:12 Labs: Abnormal Lab Results - Last 24 Hours (Table) 05/20/24 05/20/24 05/21/24 Range/Units 09:32 09:32 06:12 WBC 13.20 H (4.50-10.00) X 10*3/uL Hct 36.5 L (37.2-46.3) % Immature Gran # 0.08 H (0.00-0.04) X 10*3/uL Neutrophils # 7.9 H 10.35 H (1.3-7.7) k/uL Lymphocytes # 0.7 L (1.0-4.8) k/uL Monocytes # 1.09 H (0.20-1.00) X 10*3/uL Sodium (135-145) mmol/L Carbon Dioxide (21.6-31.8) mmol/L BUN 23 H (7-17) mg/dL BUN/Creatinine Ratio (12.00-20.00) Ratio Glucose 118 H (74-99) mg/dL Calcium 8.1 L (8.4-10.2) mg/dL 05/21/24 Range/Units 06:12 WBC (4.50-10.00) X 10*3/uL Hct (37.2-46.3) % Immature Gran # (0.00-0.04) X 10*3/uL Neutrophils # (1.3-7.7) k/uL Lymphocytes # (1.0-4.8) k/uL Monocytes # (0.20-1.00) X 10*3/uL Sodium 133 L (135-145) mmol/L Carbon Dioxide 21.0 L (21.6-31.8) mmol/L BUN (7-17) mg/dL BUN/Creatinine Ratio 29.43 H (12.00-20.00) Ratio Glucose 124 H (74-99) mg/dL Calcium 8.4 L (8.4-10.2) mg/dL Microbiology - Last 24 Hours (Table) 05/19/24 19:16 Blood Culture - Preliminary Blood 05/19/24 19:16 Blood Culture - Preliminary Blood 05/19/24 16:45 Gram Stain - Preliminary Abdomen Wound Culture - Preliminary Gram Neg Bacilli 05/19/24 12:22 Urine Culture - Final Urine,Clean Catch
--- NOTE | 2024-05-21 12:28 | P.PN ---
Subjective Progress Note Date: 05/21/24 CHIEF COMPLAINT: Acute perforated appendicitis with abscess HISTORY OF PRESENT ILLNESS: Patient is postop day #2 status post open appendectomy. Patient had pain and nausea for about 12:00 midnight to 3 in the morning. No vomiting. Patient reports she started to have increased output through her MARY drain there is a total of 220 mL output through the night. MARY drain color is less cloudy per patient. She reports that the MARY drain did get emptied about 4-6 times last night. She reports this morning her pain is less. She denies any flatus or BM. No vomiting. PHYSICAL EXAM: VITAL SIGNS: Reviewed. GENERAL: Well-developed in no acute distress. ABDOMEN: Soft. Nondistended. Mild tenderness with palpation. [place] wound VAC intact with small area of saturation noted at distal portion of the [place] NEUROLOGIC: Alert and oriented. Cranial nerves II through XII grossly intact. ASSESSMENT: 1. Acute perforated appendicitis with abscess PLAN: -Continue to monitor MARY drain output -Continue IV antibiotics -Continue clear liquid diet for today -Encourage patient to ambulate -Encourage patient to use incentive spirometer -Continue pain management -Awaiting cultures to finalize -DVT prophylaxis Lovenox Physician Loading Dock Helper note has been reviewed by physician. Signing provider agrees with the documented findings, assessment, and plan of care. I have personally seen and examined the patient, reviewed the TAXATION CONSULTANT /PAs history, exam and MDM and agree with the assessment and plan as written. Based on total visit time, I have performed more than 50% of the visit. As above: Patient says her pain is improved today. Tolerating clear liquids. No flatus. Some nausea earlier today. No vomiting. MARY output serous. Labs noted. Culture showing gram-negative bacilli. Continue antibiotics. Gradually increase activity. Advance diet once ileus demonstrates improvement. Objective - Vital Signs Vital signs: Vital Signs Temp 98.1 F 05/21/24 07:11 Pulse 89 05/21/24 07:11 Resp 18 05/21/24 07:11 BP 108/68 05/21/24 07:11 Pulse Ox 93 L 05/21/24 07:11 FiO2 Intake & Output 05/20/24 05/21/24 05/21/24 18:59 06:59 18:59 Output Total 30 220 Balance -30 -220 Output: Drainage 30 220 Right Abdomen 30 220 Other: # Voids 2 1 - Labs CBC & Chem 7: 05/21/24 06:12 05/21/24 06:12 Labs: Abnormal Lab Results - Last 24 Hours (Table) 05/21/24 05/21/24 Range/Units 06:12 06:12 WBC 13.20 H (4.50-10.00) X 10*3/uL Hct 36.5 L (37.2-46.3) % Immature Gran # 0.08 H (0.00-0.04) X 10*3/uL Neutrophils # 10.35 H (1.80-7.70) X 10*3/uL Monocytes # 1.09 H (0.20-1.00) X 10*3/uL Sodium 133 L (135-145) mmol/L Carbon Dioxide 21.0 L (21.6-31.8) mmol/L BUN/Creatinine Ratio 29.43 H (12.00-20.00) Ratio Glucose 124 H (70-110) mg/dL Calcium 8.4 L (8.7-10.3) mg/dL Microbiology - Last 24 Hours (Table) 05/19/24 19:16 Blood Culture - Preliminary Blood 05/19/24 19:16 Blood Culture - Preliminary Blood 05/19/24 16:45 Gram Stain - Preliminary Abdomen Wound Culture - Preliminary Gram Neg Bacilli 05/19/24 12:22 Urine Culture - Final Urine,Clean Catch
[2024-05-22] MEDS: KETOROLAC 15 MG/ML 1 ML VIAL IVP STA (01:09)
[2024-05-22 09:24] LABS: African American GFR (CKD) >90 (>60 ml/min/1.73 sqM); Anion Gap 11 mmol/L; Blood Urea Nitrogen 21 mg/dL (7-17); Calcium 8.5 mg/dL (8.4-10.2); Carbon Dioxide 17 mmol/L (22-30); Chloride 104 mmol/L (98-107); Glucose 128 mg/dL (74-99); Non-African American GFR(CKD) >90 (>60 ml/min/1.73 sqM); Sodium 132 mmol/L (137-145)
[2024-05-22 09:43] LABS: Basophils % (A) 0 %; Eosinophils # (A) 0.3 k/uL (0-0.7); Eosinophils % (A) 2 %; HCT 41.8 % (34.0-46.0); HGB 13.5 gm/dL (11.4-16.0); Lymphocytes # (A) 1.3 k/uL (1.0-4.8); Lymphocytes % (A) 9 %; MCH 28.8 pg (25.0-35.0); MCHC 32.4 g/dL (31.0-37.0); MCV 88.7 fL (80.0-100.0); Mean Platelet Volume 8.6; Monocytes # (A) 0.7 k/uL (0-1.0); Monocytes % (A) 5 %; Neutrophils # (A) 11.1 k/uL (1.3-7.7); Neutrophils % (A) 82 %; Platelet Count 282 k/uL (150-450); RBC 4.71 m/uL (3.80-5.40); RDW 13.7 % (11.5-15.5); WBC 13.6 k/uL (3.8-10.6)
[2024-05-22] MEDS: AMPICILLIN-SULBACTAM 3 GM in SODIUM CHLORIDE 0.9% 100 ML IVPB SCH (13:20)
--- NOTE | 2024-05-22 15:40 | P.PN ---
Subjective Progress Note Date: 05/21/24 Principal diagnosis: Reason for follow-up is perforated appendicitis intra-abdominal abscess Patient is a 59-year-old female with a past medical history significant for rheumatoid arthritis presenting to the hospital with 3-day history of abdominal pain has been diagnosed with a ruptured appendicitis status post open appendectomy and drainage of the abscess. On today's evaluation that is 05/21/2024,the patient remains to be afebrile, patient is on room air not requiring supplemental oxygen and denies any shortness of breath no chest pain or cough.Patient has been complaining of feeling nauseated and abdominal discomfort did not have a bowel movement not passing any gas. Patient white count is 13.20 creatinine 0.7 Objective - Vital Signs Vital signs: Vital Signs Temp 98.1 F 05/21/24 07:11 Pulse 89 05/21/24 07:11 Resp 18 05/21/24 07:11 BP 108/68 05/21/24 07:11 Pulse Ox 93 L 05/21/24 07:11 FiO2 Intake & Output 05/20/24 05/21/24 05/21/24 18:59 06:59 18:59 Output Total 30 220 Balance -30 -220 Output: Drainage 30 220 Right Abdomen 30 220 Other: # Voids 2 1 - Exam GENERAL DESCRIPTION: Middle-aged female lying in bed in no distress RESPIRATORY SYSTEM: Unlabored breathing , decreased breath sounds at bases HEART: S1 S2 regular rate and rhythm , ABDOMEN: Soft , mild distention and tenderness EXTREMITIES: No edema feet - Labs CBC & Chem 7: 05/22/24 08:49 05/22/24 08:44 Labs: Abnormal Lab Results - Last 24 Hours (Table) 05/21/24 05/21/24 Range/Units 06:12 06:12 WBC 13.20 H (4.50-10.00) X 10*3/uL Hct 36.5 L (37.2-46.3) % Immature Gran # 0.08 H (0.00-0.04) X 10*3/uL Neutrophils # 10.35 H (1.80-7.70) X 10*3/uL Monocytes # 1.09 H (0.20-1.00) X 10*3/uL Sodium 133 L (135-145) mmol/L Carbon Dioxide 21.0 L (21.6-31.8) mmol/L BUN/Creatinine Ratio 29.43 H (12.00-20.00) Ratio Glucose 124 H (70-110) mg/dL Calcium 8.4 L (8.7-10.3) mg/dL Microbiology - Last 24 Hours (Table) 05/19/24 19:16 Blood Culture - Preliminary Blood 05/19/24 19:16 Blood Culture - Preliminary Blood 05/19/24 16:45 Gram Stain - Preliminary Abdomen Wound Culture - Preliminary Gram Neg Bacilli 05/19/24 12:22 Urine Culture - Final Urine,Clean Catch Assessment and Plan (1) Peritonitis Current Visit: Yes Status: Acute Code(s): K65.9 - PERITONITIS, UNSPECIFIED SNOMED Code(s): 34021866 (2) Intra-abdominal abscess Current Visit: Yes Status: Acute Code(s): K65.1 - PERITONEAL ABSCESS SNOMED Code(s): 06376777 (3) Erythromycin allergy Current Visit: Yes Status: Acute Code(s): Z88.1 - ALLERGY STATUS TO OTHER ANTIBIOTIC AGENTS SNOMED Code(s): 23333116 (4) Appendicitis with perforation Current Visit: Yes Status: Acute Code(s): K35.32 - AC APPENDICITIS W PERF, LOC PERITONITIS, & GANGR, W/O ABSCS SNOMED Code(s): 28274081 Plan: 1patient presenting to hospital with abdominal pain x 3 days and this patient has been diagnosed with a perforated appendicitis and periappendiceal abscess status post open appendectomy and drainage of the abscess we will need to cover for the enteric gram-negative both anaerobes and anaerobes to the likely pathogen 2-patient afebrile white count slightly up today that we will monitor closely for now continue with Zosyn repeat CBC with a.m. lab Dictation was produced using [employer] dictation software. please excuse any grammatical, word or spelling errors.
--- NOTE | 2024-05-22 15:41 | P.PN ---
Subjective Progress Note Date: 05/22/24 Principal diagnosis: Reason for follow-up is perforated appendicitis intra-abdominal abscess Patient is a 59-year-old female with a past medical history significant for rheumatoid arthritis presenting to the hospital with 3-day history of abdominal pain has been diagnosed with a ruptured appendicitis status post open appendectomy and drainage of the abscess. On today's evaluation that is 05/22/2024, the patient continues to be afebrile, the patient is on room air and breathing comfortably, the Pt denies having any chest pain or cough, the patient has been complaining of feeling nauseated with associated abdominal discomfort did not have any bowel movement. Patient white count is 13.6 abdominal culture finalized with E. coli that is a sensitive pathogen as well as Bacteroides fragilis Objective - Vital Signs Vital signs: Vital Signs Temp 98.2 F 05/22/24 07:53 Pulse 88 05/22/24 07:53 Resp 17 05/22/24 07:53 BP 114/75 05/22/24 07:53 Pulse Ox 95 05/22/24 07:53 FiO2 Intake & Output 05/21/24 05/22/24 05/22/24 18:59 06:59 18:59 Output Total 485 760 120 Balance -485 -760 -120 Output: Drainage 485 760 120 Right Abdomen 485 760 120 Other: # Voids 1 2 - Exam GENERAL DESCRIPTION: Middle-aged female lying in bed in no distress RESPIRATORY SYSTEM: Unlabored breathing , decreased breath sounds at bases HEART: S1 S2 regular rate and rhythm , ABDOMEN: Soft , mild distention and tenderness EXTREMITIES: No edema feet - Labs CBC & Chem 7: 05/22/24 08:49 05/22/24 08:44 Labs: Abnormal Lab Results - Last 24 Hours (Table) 05/22/24 05/22/24 Range/Units 08:44 08:49 WBC 13.6 H (3.8-10.6) k/uL Neutrophils # 11.1 H (1.3-7.7) k/uL Sodium 132 L (137-145) mmol/L Carbon Dioxide 17 L (22-30) mmol/L BUN 21 H (7-17) mg/dL Glucose 128 H (74-99) mg/dL Microbiology - Last 24 Hours (Table) 05/19/24 19:16 Blood Culture - Preliminary Blood 05/19/24 19:16 Blood Culture - Preliminary Blood 05/19/24 16:45 Anaerobic Culture - Final Abdomen Bacteroides fragilis Parvimonas micra 05/19/24 16:45 Gram Stain - Final Abdomen Wound Culture - Final Escherichia coli Assessment and Plan (1) Peritonitis Current Visit: Yes Status: Acute Code(s): K65.9 - PERITONITIS, UNSPECIFIED SNOMED Code(s): 25498216 (2) Intra-abdominal abscess Current Visit: Yes Status: Acute Code(s): K65.1 - PERITONEAL ABSCESS SNOMED Code(s): 77249287 (3) Erythromycin allergy Current Visit: Yes Status: Acute Code(s): Z88.1 - ALLERGY STATUS TO OTHER ANTIBIOTIC AGENTS SNOMED Code(s): 62287821 (4) Appendicitis with perforation Current Visit: Yes Status: Acute Code(s): K35.32 - AC APPENDICITIS W PERF, LOC PERITONITIS, & GANGR, W/O ABSCS SNOMED Code(s): 43178134 Plan: 1patient presenting to hospital with abdominal pain x 3 days and this patient has been diagnosed with a perforated appendicitis and periappendiceal abscess status post open appendectomy and drainage of the abscess we will need to cover for the enteric gram-negative both anaerobes and anaerobes to the likely pathogen 2-patient afebrile patient abdominal culture finalized with an E. coli that is a sensitive pathogen and Bacteroides we will adjust antibiotic therapy to Unasyn still having nausea and not having any bowel movement and need to be monitored closely while inpatient Dictation was produced using [employer] dictation software. please excuse any grammatical, word or spelling errors. Time with Patient: Less than 30
--- NOTE | 2024-05-22 15:54 | P.PN ---
Subjective Progress Note Date: 05/22/24 CHIEF COMPLAINT: Acute perforated appendicitis with abscess HISTORY OF PRESENT ILLNESS: Patient is postop day #3 status post open appendectomy. Patient had episode of vomiting this morning. She is having flatus. No bowel movement. Nursing staff notified me that patient was having bleeding in the pre-Bohne wound VAC tubing and dressing was saturated. Also, patient having a large amount of MARY drain output 760 mL throughout the night and 120 this morning. Color is more serous and cloudy. Afebrile. Vital stable. WBC 13.6 Hgb 13.5 culture grew E. coli and bacteroids. Antibiotics adjusted per infectious disease. PHYSICAL EXAM: VITAL SIGNS: Reviewed. GENERAL: Well-developed in no acute distress. ABDOMEN: Soft. Mildly distended. Mild tenderness more on the right of the incision. Octaviano on a wound VAC removed. Large blood clot noted along the incision connected at the umbilicus. Clot was removed. No further bleeding noted. NEUROLOGIC: Alert and oriented. Cranial nerves II through XII grossly intact. ASSESSMENT: 1. Acute perforated appendicitis with abscess 2. Leukocytosis PLAN: -MARY drain with large amount of output. Check creatinine and fluid level -Continue to monitor MARY drain output -Continue antibiotics per ID service -Advance diet to full liquids -Encourage patient to ambulate -Encourage patient to use incentive spirometer -Continue pain management -DVT prophylaxis Lovenox Physician Yarn Comber note has been reviewed by physician. Signing provider agrees with the documented findings, assessment, and plan of care. I have personally seen and examined the patient, reviewed the GYRO COMPASS TESTER /PAs history, exam and MDM and agree with the assessment and plan as written. Based on total visit time, I have performed more than 50% of the visit. As above: Patient was having some blood under the dressing. When I examined her in the chair there was some oozing coming from the umbilical region. I had the patient lay down in bed and evaluated the incision near the umbilical region. No active bleeding seen. The base of the umbilicus was packed with a cotton gauze. A gentle pressure dressing was applied and ice was placed beneath the binder. Continue to monitor for recurrent bleeding. Continue sips of liquids for now given patient's complaints of nausea and ongoing ileus. MARY drain to be sent for creatinine level given high output. Objective - Vital Signs Vital signs: Vital Signs Temp 98.4 F 05/22/24 14:00 Pulse 92 05/22/24 14:00 Resp 17 05/22/24 14:00 BP 112/75 05/22/24 14:00 Pulse Ox 95 05/22/24 14:00 FiO2 Intake & Output 05/21/24 05/22/24 05/22/24 18:59 06:59 18:59 Output Total 485 760 260 Balance -485 -760 -260 Output: Drainage 485 760 260 Right Abdomen 485 760 260 Other: # Voids 1 2 - Labs CBC & Chem 7: 05/22/24 08:49 05/22/24 08:44 Labs: Abnormal Lab Results - Last 24 Hours (Table) 05/22/24 05/22/24 Range/Units 08:44 08:49 WBC 13.6 H (3.8-10.6) k/uL Neutrophils # 11.1 H (1.3-7.7) k/uL Sodium 132 L (137-145) mmol/L Carbon Dioxide 17 L (22-30) mmol/L BUN 21 H (7-17) mg/dL Glucose 128 H (74-99) mg/dL Microbiology - Last 24 Hours (Table) 05/19/24 19:16 Blood Culture - Preliminary Blood 05/19/24 19:16 Blood Culture - Preliminary Blood 05/19/24 16:45 Anaerobic Culture - Final Abdomen Bacteroides fragilis Parvimonas micra 05/19/24 16:45 Gram Stain - Final Abdomen Wound Culture - Final Escherichia coli
--- NOTE | 2024-05-22 15:58 | P.PN ---
Subjective Progress Note Date: 05/22/24 Subjective Patient seen this morning. She is complaining of some abdominal pain. Daughter was at bedside. Daughter is requesting if her mother can get an abdominal binder. I told him that I will defer to surgery. 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 coli, Bacteroides fragilis, parvimonas micra Infectious disease switched the patient from IV Zosyn to IV Unasyn. ID will switch the patient to oral abx when the patient is able to tolerate p.o. intake Patient WBC slightly elevated at 13.6. Patient otherwise is afebrile. DVT prophylaxis with Lovenox 40 mg subcu daily Tylenol as needed for fever Thank you for this consultation Objective - Vital Signs Vital signs: Vital Signs Temp 98.4 F 05/22/24 14:00 Pulse 92 05/22/24 14:00 Resp 17 05/22/24 14:00 BP 112/75 05/22/24 14:00 Pulse Ox 95 05/22/24 14:00 FiO2 Intake & Output 05/21/24 05/22/24 05/22/24 18:59 06:59 18:59 Output Total 485 760 260 Balance -485 -760 -260 Output: Drainage 485 760 260 Right Abdomen 485 760 260 Other: # Voids 1 2 - Labs CBC & Chem 7: 05/22/24 08:49 05/22/24 08:44 Labs: Abnormal Lab Results - Last 24 Hours (Table) 05/22/24 05/22/24 Range/Units 08:44 08:49 WBC 13.6 H (3.8-10.6) k/uL Neutrophils # 11.1 H (1.3-7.7) k/uL Sodium 132 L (137-145) mmol/L Carbon Dioxide 17 L (22-30) mmol/L BUN 21 H (7-17) mg/dL Glucose 128 H (74-99) mg/dL Microbiology - Last 24 Hours (Table) 05/19/24 19:16 Blood Culture - Preliminary Blood 05/19/24 19:16 Blood Culture - Preliminary Blood 05/19/24 16:45 Anaerobic Culture - Final Abdomen Bacteroides fragilis Parvimonas micra 05/19/24 16:45 Gram Stain - Final Abdomen Wound Culture - Final Escherichia coli
[2024-05-23 08:52] LABS: Blood Urea Nitrogen 15.8 mg/dL (9.0-27.0); Carbon Dioxide 23.2 mmol/L (21.6-31.8); Chloride 101 mmol/L (96-109); Glucose 95 mg/dL (70-110); Sodium 137 mmol/L (135-145)
[2024-05-23 08:54] LABS: Basophils # (A) 0.05 X 10*3/uL (0.00-0.10); Basophils % (A) 0.5 %; Eosinophils % (A) 4.2 %; HCT 32.8 % (37.2-46.3); HGB 10.9 g/dL (12.0-15.0); Lymphocytes # (A) 1.67 X 10*3/uL (0.90-5.00); Lymphocytes % (A) 17.6 %; MCH 28.2 pg (27.0-32.0); MCHC 33.2 g/dL (32.0-37.0); Mean Platelet Volume 9.8 FL (9.5-12.2); Monocytes # (A) 0.83 X 10*3/uL (0.20-1.00); Monocytes % (A) 8.8 %; NRBC Per 100 WBC 0 X 10*3/uL (0.00-0.01); Neutrophils # (A) 6.29 X 10*3/uL (1.80-7.70); Neutrophils % (A) 66.4 %; Platelet Count 320 X 10*3/uL (140-440); RBC 3.86 X 10*6/uL (4.10-5.20); RDW 14.3 % (11.5-14.5); WBC 9.48 X 10*3/uL (4.50-10.00)
--- NOTE | 2024-05-23 11:20 | P.PN ---
Subjective Progress Note Date: 05/23/24 CHIEF COMPLAINT: Acute perforated appendicitis with abscess HISTORY OF PRESENT ILLNESS: Patient is postop day #4 status post open appendectomy. Patient reports feeling better today. The abdominal binder is helping. Her she reports her pain is decreased. No further vomiting. She denies any bowel activity. She had a small amount of the full liquids. The blood oozing from the umbilicus has resolved. There is a tiny amount of blood oozing from the distal aspect of the incision. MARY drain output 105 mL serosanguineous. Afebrile. Fluid creatinine from MARY drain 0.6. WBC is down from 13.6-9.48 Hgb 10.9 platelets 320 sodium 137 potassium 4.0 creatinine 0.5 PHYSICAL EXAM: VITAL SIGNS: Reviewed. GENERAL: Well-developed in no acute distress. ABDOMEN: Soft. Nondistended. Mild tenderness to palpation at incision site. There is no active bleeding at the incision site at the umbilicus. There is a small amount of blood oozing from the distal incision. NEUROLOGIC: Alert and oriented. Cranial nerves II through XII grossly intact. ASSESSMENT: 1. Acute perforated appendicitis with abscess 2. Leukocytosis improved PLAN: -Continue to monitor MARY drain output -Continue abdominal binder -Continue antibiotics per infectious disease -Continue full liquid diet -Continue pain management -Ensure added for protein supplement -DVT prophylaxis Lovenox Physician Inspector Type note has been reviewed by physician. Signing provider agrees with the documented findings, assessment, and plan of care. I have personally seen and examined the patient, reviewed the TILE FINISHER /PAs history, exam and MDM and agree with the assessment and plan as written. Based on total visit time, I have performed more than 50% of the visit. As above: Patient doing better today. No further bleeding. Labs noted. Creatinine in the drain fluid is normal. Agree with continuing liquid diet for now. Begin increasing activity. Objective - Vital Signs Vital signs: Vital Signs Temp 97.8 F 05/23/24 07:59 Pulse 82 05/23/24 07:59 Resp 12 05/23/24 07:59 BP 126/73 05/23/24 07:59 Pulse Ox 91 L 05/23/24 07:59 FiO2 Intake & Output 05/22/24 05/23/24 05/23/24 18:59 06:59 18:59 Output Total 320 225 Balance -320 -225 Output: Drainage 320 225 Right Abdomen 320 225 Other: # Voids 1 - Labs CBC & Chem 7: 05/23/24 05:47 05/23/24 05:47 Labs: Abnormal Lab Results - Last 24 Hours (Table) 05/23/24 05/23/24 Range/Units 05:47 05:47 RBC 3.86 L (4.10-5.20) X 10*6/uL Hgb 10.9 L (12.0-15.0) g/dL Hct 32.8 L (37.2-46.3) % Immature Gran # 0.24 H (0.00-0.04) X 10*3/uL Eosinophils # 0.40 H (0.04-0.35) X 10*3/uL Anion Gap 12.80 H (4.00-12.00) mmol/L Creatinine 0.5 L (0.6-1.5) mg/dL BUN/Creatinine Ratio 31.60 H (12.00-20.00) Ratio Calcium 8.0 L (8.7-10.3) mg/dL Microbiology - Last 24 Hours (Table) 05/19/24 19:16 Blood Culture - Preliminary Blood 05/19/24 19:16 Blood Culture - Preliminary Blood
--- NOTE | 2024-05-23 13:14 | P.PN ---
Subjective Progress Note Date: 05/23/24 Principal diagnosis: abdominal pain As opposed to the last few days patient denies having any nausea or vomiting. No fevers or chills. She is tolerating liquid diet. Abdominal pain is tolerable. Objective - Vital Signs Vital signs: Vital Signs Temp 97.8 F 05/23/24 07:59 Pulse 82 05/23/24 07:59 Resp 12 05/23/24 07:59 BP 126/73 05/23/24 07:59 Pulse Ox 91 L 05/23/24 07:59 FiO2 Intake & Output 05/22/24 05/23/24 05/23/24 18:59 06:59 18:59 Intake Total 120 Output Total 320 225 Balance -320 -105 Intake: Oral 120 Output: Drainage 320 225 Right Abdomen 320 225 Other: # Voids 1 - Exam Constitutional: No acute distress, conversant, pleasant Eyes:Anicteric sclerae, moist conjunctiva, no lid-lag, PERRLA, ENMT: Oropharynx clear, no erythema, exudates Neck: Supple, FROM, no masses, or JVD, No carotid bruits, No thyromegaly Lungs: Clear to auscultation, Clear to percussion, Normal respiratory effort, no accessory muscle use Cardiovascular: Heart regular in rate and rhythm, No murmurs, gallops, or rubs, No peripheral edema Abdominal: abdominal binder and surgical dressings in place. Soft, Nontender, no guarding, rebound or rigidity, Normoactive bowel sounds, No hepatomegaly, No splenomegaly, No palpable mass Skin: Normal temperature, tone, texture, turgor, no induration, No subcutaneous nodules, No rash, lesions, No ulcers Extremities: No digital cyanosis, No clubbing, Pedal pulses intact and symmetrical, Radial pulses intact and symmetrical, No calf tenderness Psychiatric: Alert and oriented to person, place and time, appropriate affect, intact judgement Neuro: Muscles Strength 5/5 in all 4 extremities, Sensation to light touch grossly present throughout, Cranial nerves II-XII grossly intact, no focal sensory deficits - Labs CBC & Chem 7: 05/23/24 05:47 05/23/24 05:47 Labs: Abnormal Lab Results - Last 24 Hours (Table) 05/23/24 05/23/24 Range/Units 05:47 05:47 RBC 3.86 L (4.10-5.20) X 10*6/uL Hgb 10.9 L (12.0-15.0) g/dL Hct 32.8 L (37.2-46.3) % Immature Gran # 0.24 H (0.00-0.04) X 10*3/uL Eosinophils # 0.40 H (0.04-0.35) X 10*3/uL Anion Gap 12.80 H (4.00-12.00) mmol/L Creatinine 0.5 L (0.6-1.5) mg/dL BUN/Creatinine Ratio 31.60 H (12.00-20.00) Ratio Calcium 8.0 L (8.7-10.3) mg/dL Microbiology - Last 24 Hours (Table) 05/19/24 19:16 Blood Culture - Preliminary Blood 05/19/24 19:16 Blood Culture - Preliminary Blood Assessment and Plan Plan: Acute perforated appendicitis status post laparotomy and appendectomy Sepsis Leukocytosis Hyponatremia Management per general surgery team Cultures from surgery grew E. coli, Bacteroides fragilis, parvimonas micra Infectious disease switched the patient from IV Zosyn to IV Unasyn. ID will switch the patient to oral abx when the patient is able to tolerate p.o. intake Patient WBC slightly elevated at 13.6. Patient otherwise is afebrile. DVT prophylaxis with Lovenox 40 mg subcu daily Tylenol as needed for fever
--- NOTE | 2024-05-23 16:19 | P.PN ---
Subjective Progress Note Date: 05/23/24 Principal diagnosis: Reason for follow-up is perforated appendicitis intra-abdominal abscess Patient is a 59-year-old female with a past medical history significant for rheumatoid arthritis presenting to the hospital with 3-day history of abdominal pain has been diagnosed with a ruptured appendicitis status post open appendectomy and drainage of the abscess. On today's evaluation that is 05/23/2024, Patient is afebrile patient is currently on room air and denies having any shortness of breath, the patient denies any chest pain or cough, the patient did have room in her nausea no vomiting abdominal pain Decreased intensity did not have any bowel movement. Patient white count normalized to 9.48, creatinine is 0.5 Objective - Vital Signs Vital signs: Vital Signs Temp 97.8 F 05/23/24 07:59 Pulse 82 05/23/24 07:59 Resp 12 05/23/24 07:59 BP 126/73 05/23/24 07:59 Pulse Ox 91 L 05/23/24 07:59 FiO2 Intake & Output 05/22/24 05/23/24 05/23/24 18:59 06:59 18:59 Output Total 320 225 Balance -320 -225 Output: Drainage 320 225 Right Abdomen 320 225 Other: # Voids 1 - Exam GENERAL DESCRIPTION: Middle-aged female lying in bed in no distress RESPIRATORY SYSTEM: Unlabored breathing , decreased breath sounds at bases HEART: S1 S2 regular rate and rhythm , ABDOMEN: Soft , mild distention and tenderness EXTREMITIES: No edema feet - Labs CBC & Chem 7: 05/23/24 05:47 05/23/24 05:47 Labs: Abnormal Lab Results - Last 24 Hours (Table) 05/23/24 05/23/24 Range/Units 05:47 05:47 RBC 3.86 L (4.10-5.20) X 10*6/uL Hgb 10.9 L (12.0-15.0) g/dL Hct 32.8 L (37.2-46.3) % Immature Gran # 0.24 H (0.00-0.04) X 10*3/uL Eosinophils # 0.40 H (0.04-0.35) X 10*3/uL Anion Gap 12.80 H (4.00-12.00) mmol/L Creatinine 0.5 L (0.6-1.5) mg/dL BUN/Creatinine Ratio 31.60 H (12.00-20.00) Ratio Calcium 8.0 L (8.7-10.3) mg/dL Microbiology - Last 24 Hours (Table) 05/19/24 19:16 Blood Culture - Preliminary Blood 05/19/24 19:16 Blood Culture - Preliminary Blood Assessment and Plan (1) Peritonitis Current Visit: Yes Status: Acute Code(s): K65.9 - PERITONITIS, UNSPECIFIED SNOMED Code(s): 48412306 (2) Intra-abdominal abscess Current Visit: Yes Status: Acute Code(s): K65.1 - PERITONEAL ABSCESS S NOMED Code(s): 75800130 (3) Erythromycin allergy Current Visit: Yes Status: Acute Code(s): Z88.1 - ALLERGY STATUS TO OTHER ANTIBIOTIC AGENTS SNOMED Code(s): 17958983 (4) Appendicitis with perforation Current Visit: Yes Status: Acute Code(s): K35.32 - AC APPENDICITIS W PERF, LOC PERITONITIS, & GANGR, W/O ABSCS SNOMED Code(s): 68075828 Plan: 1patient presenting to hospital with abdominal pain x 3 days and this patient has been diagnosed with a perforated appendicitis and periappendiceal abscess status post open appendectomy and drainage of the abscess we will need to cover for the enteric gram-negative both anaerobes and anaerobes to the likely pathogen 2-patient afebrile and the patient white count has normalized, patient abdominal culture finalized with an E. coli that is a sensitive pathogen and Bacteroides 3-patient to continue Unasyn and monitor clinical course closely Dictation was produced using [employer] dictation software. please excuse any grammatical, word or spelling errors. Time with Patient: Less than 30
[2024-05-24 09:19] LABS: Basophils # (A) 0.08 X 10*3/uL (0.00-0.10); Eosinophils # (A) 0.29 X 10*3/uL (0.04-0.35); Eosinophils % (A) 3.7 %; HCT 33.8 % (37.2-46.3); HGB 11.1 g/dL (12.0-15.0); Lymphocytes # (A) 1.46 X 10*3/uL (0.90-5.00); Lymphocytes % (A) 18.7 %; MCH 28.5 pg (27.0-32.0); MCHC 32.8 g/dL (32.0-37.0); MCV 86.9 FL (80.0-97.0); Mean Platelet Volume 9.6 FL (9.5-12.2); Monocytes # (A) 0.77 X 10*3/uL (0.20-1.00); Monocytes % (A) 9.9 %; NRBC Per 100 WBC 0 X 10*3/uL (0.00-0.01); Neutrophils # (A) 4.87 X 10*3/uL (1.80-7.70); Neutrophils % (A) 62.5 %; Platelet Count 378 X 10*3/uL (140-440); RBC 3.89 X 10*6/uL (4.10-5.20); RDW 14.4 % (11.5-14.5)
[2024-05-24 12:39] LABS: Blood Urea Nitrogen 13.6 mg/dL (9.0-27.0); Carbon Dioxide 23.7 mmol/L (21.6-31.8); Chloride 99 mmol/L (96-109); Glucose 96 mg/dL (70-110); Potassium 3.8 mmol/L (3.5-5.5); Sodium 136 mmol/L (135-145)
--- NOTE | 2024-05-24 13:58 | P.PN ---
Progress Note - Text Progress Note Date: 05/24/24 CHIEF COMPLAINT: Acute perforated appendicitis with abscess HISTORY OF PRESENT ILLNESS: Patient is postop day #5 status post open appendectomy. NAEO. No bowel function yet. PHYSICAL EXAM: VITAL SIGNS: Reviewed. GENERAL: Well-developed in no acute distress. ABDOMEN: Soft. Nondistended. Mild tenderness to palpation at incision site. There is no active bleeding at the incision site at the umbilicus. There is a small amount of blood oozing from the distal incision. NEUROLOGIC: Alert and oriented. Cranial nerves II through XII grossly intact. ASSESSMENT: 1. Acute perforated appendicitis with abscess 2. Leukocytosis improved PLAN: -Continue to monitor MARY drain output -Continue abdominal binder -Continue antibiotics per infectious disease -Continue full liquid diet -Continue pain management -Ensure added for protein supplement -DVT prophylaxis Lovenox
--- NOTE | 2024-05-24 15:12 | P.PN ---
Subjective Progress Note Date: 05/24/24 Principal diagnosis: Reason for follow-up is perforated appendicitis intra-abdominal abscess Patient is a 59-year-old female with a past medical history significant for rheumatoid arthritis presenting to the hospital with 3-day history of abdominal pain has been diagnosed with a ruptured appendicitis status post open appendectomy and drainage of the abscess. On today's evaluation that is 05/24/2024, patient has been afebrile, patient is breathing comfortably and is currently on room air, patient denies having any significant cough no chest pain shortness of breath, patient did have some improvement in nausea with vomiting some abdominal discomfort no bowel movement. Patient white count is 7.80, creatinine 0.5 Objective - Vital Signs Vital signs: Vital Signs Temp 98.3 F 05/24/24 07:34 Pulse 81 05/24/24 07:34 Resp 17 05/24/24 07:34 BP 120/69 05/24/24 07:34 Pulse Ox 96 05/24/24 07:34 FiO2 Intake & Output 05/23/24 05/24/24 05/24/24 18:59 06:59 18:59 Intake Total 600 Output Total 305 160 Balance 295 -160 Intake: Oral 600 Output: Drainage 305 160 Right Abdomen 305 160 Other: Voiding Method Toilet Toilet # Voids 3 1 - Exam GENERAL DESCRIPTION: Middle-aged female lying in bed in no distress RESPIRATORY SYSTEM: Unlabored breathing , decreased breath sounds at bases HEART: S1 S2 regular rate and rhythm , ABDOMEN: Soft , mild distention and tenderness EXTREMITIES: No edema feet - Labs CBC & Chem 7: 05/24/24 05:40 05/24/24 05:40 Labs: Abnormal Lab Results - Last 24 Hours (Table) 05/24/24 05/24/24 Range/Units 05:40 05:40 RBC 3.89 L (4.10-5.20) X 10*6/uL Hgb 11.1 L (12.0-15.0) g/dL Hct 33.8 L (37.2-46.3) % Immature Gran # 0.33 H (0.00-0.04) X 10*3/uL Anion Gap 13.30 H (4.00-12.00) mmol/L Creatinine 0.5 L (0.6-1.5) mg/dL BUN/Creatinine Ratio 27.20 H (12.00-20.00) Ratio Calcium 8.0 L (8.7-10.3) mg/dL Assessment and Plan (1) Peritonitis Current Visit: Yes Status: Acute Code(s): K65.9 - PERITONITIS, UNSPECIFIED SNOMED Code(s): 02373573 (2) Intra-abdominal abscess Current Visit: Yes Status: Acute Code(s): K65.1 - PERITONEAL ABSCESS SNOMED Code(s): 67303032 (3) Erythromycin allergy Current Visit: Yes Status: Acute Code(s): Z88.1 - ALLERGY STATUS TO OTHER ANTIBIOTIC AGENTS SNOMED Code(s): 74115123 (4) Appendicitis with perforation Current Visit: Yes Status: Acute Code(s): K35.32 - AC APPENDICITIS W PERF, LOC PERITONITIS, & GANGR, W/O ABSCS SNOMED Code(s): 10690523 Plan: 1patient presenting to hospital with abdominal pain x 3 days and this patient has been diagnosed with a perforated appendicitis and periappendiceal abscess status post open appendectomy and drainage of the abscess we will need to cover for the enteric gram-negative both anaerobes and anaerobes to the likely p athogen 2-patient afebrile and the patient white count has normalized, patient abdominal culture finalized with an E. coli that is a sensitive pathogen and Bacteroides 3-patient to continue Unasyn and continue with supportive care Dictation was produced using [employer] dictation software. please excuse any grammatical, word or spelling errors. Time with Patient: Less than 30
--- NOTE | 2024-05-24 16:01 | P.PN ---
Subjective Progress Note Date: 05/24/24 (delayed charting seen at 1130) Patient is a 59-year-old with obesity and rheumatoid arthritis who presented to the ER for complaints of abdominal pain. CT abdomen and pelvis showed acute appendicitis with localized perforation and early organizing fluid collection. Admitted to surgery. Underwent open active fundectomy on 05/19/2024 with Prevena wound system placed. Patient seen and examined at bedside. Pain is relatively controlled. Having some difficulty moving as she uses mostly her core muscles due to her advanced rheumatoid arthritis. Tolerating her diet. No nausea or vomiting. Had a amanda discussion with patient who has multiple social stressors at home. with Parkinson's with advanced dementia and night terrors. She has a 04/06 caregiver with him. She is very worried about him during this time as he is currently with his brother but he cannot keep caring for him long-term. She has not talked about hospice, and feels family would not consider this level of care for him. Vital signs reviewed General: Nontoxic, no distress, appears at stated age Cardiovascular: S1S2 reg, no murmur Lungs: CTA bilateral, no rhonchi, no rales, no accessory muscle use Abdominal: Soft, tender to palpation diffusely, dressing in place over midline incision, no guarding Ext: No gross muscle atrophy, no edema b/l lower extremities, no contractures Neuro: CN II-XI grossly intact, no focal neuro deficits Psych: Alert, oriented, appropriate affect Assessment/Plan: Acute appendicitis with perforation and abscess s/om open appendectomy Bacterial peritonitis-E. coli, Bacteroides, and parvimonas --Unasyn 3 g IV piggyback every 6 hours day #3, prior was treated with Zosyn X 3 days -Infectious disease following. Note reviewed-continue Unasyn and supportive care -Surgery recommendations reviewed: Monitor MARY drain, full liquid diet -Required Stinnett x 6 on 05/23, has not needed IV Dilaudid -Decrease lactated Ringer's to 75 cc/h -Continue with Protonix 40 mg IV daily -Does not take any biologic agents for her rheumatoid arthritis Class III obesity with BMI 43.3 -Outpatient follow-up Social stressor - with advanced Parkinson's who does require 04/06 care Imaging: None new Data Review: Labs reviewed from today are remarkable for hemoglobin 11.1. DVT prophylaxis: Lovenox Thank you for allowing us to participate in the care of this pleasant patient. Do not hesitate to contact us with questions. Someone can be reached from the [facility] hospitalist group all hours of the day at [phone] or via perfect serve. This dictation was prepared using [employer] voice recognition software. Though every attempt is made to correct errors during dictation some may still exist. Objective - Vital Signs Vital signs: Vital Signs Temp 98.5 F 05/24/24 13:29 Pulse 83 05/24/24 13:29 Resp 17 05/24/24 13:29 BP 149/84 05/24/24 13:29 Pulse Ox 95 05/24/24 13:29 FiO2 Intake & Output 05/23/24 05/24/24 05/24/24 18:59 06:59 18:59 Intake Total 600 Output Total 305 160 Balance 295 -160 Intake: Oral 600 Output: Drainage 305 160 Right Abdomen 305 160 Other: Voiding Method Toilet Toilet # Voids 3 1 - Labs CBC & Chem 7: 05/24/24 05:40 05/24/24 05:40 Labs: Abnormal Lab Results - Last 24 Hours (Table) 05/24/24 05/24/24 Range/Units 05:40 05:40 RBC 3.89 L (4.10-5.20) X 10*6/uL Hgb 11.1 L (12.0-15.0) g/dL Hct 33.8 L (37.2-46.3) % Immature Gran # 0.33 H (0.00-0.04) X 10*3/uL Anion Gap 13.30 H (4.00-12.00) mmol/L Creatinine 0.5 L (0.6-1.5) mg/dL BUN/Creatinine Ratio 27.20 H (12.00-20.00) Ratio Calcium 8.0 L (8.7-10.3) mg/dL
[2024-05-25 05:59] LABS: Glucose,Whole Blood 88 mg/dL (70-110)
--- NOTE | 2024-05-25 12:36 | P.PN ---
Subjective Progress Note Date: 05/25/24 Principal diagnosis: Appendicitis Patient laying in bed. Says she feels weak. She did pass flatus. No nausea or vomiting. Asking for regular food. Would like to shower. Objective - Vital Signs Vital signs: Vital Signs Temp 98.6 F 05/25/24 07:09 Pulse 84 05/25/24 07:09 Resp 18 05/25/24 07:09 BP 150/85 05/25/24 07:09 Pulse Ox 93 L 05/25/24 07:09 FiO2 Intake & Output 05/24/24 05/25/24 05/25/24 18:59 06:59 18:59 Output Total 10 Balance -10 Output: Drainage 10 Right Abdomen 10 Other: Voiding Method Toilet # Voids 2 1 - Exam Abdomen: Soft, nondistended, dressing clean and dry, mild tenderness - Labs CBC & Chem 7: 05/24/24 05:40 05/24/24 05:40 Labs: Abnormal Lab Results - Last 24 Hours (Table) 05/24/24 Range/Units 05:40 Anion Gap 13.30 H (4.00-12.00) mmol/L Creatinine 0.5 L (0.6-1.5) mg/dL BUN/Creatinine Ratio 27.20 H (12.00-20.00) Ratio Calcium 8.0 L (8.7-10.3) mg/dL Microbiology - Last 24 Hours (Table) 05/19/24 19:16 Blood Culture - Final Blood 05/19/24 19:16 Blood Culture - Final Blood Assessment and Plan (1) Appendicitis with perforation Narrative/Plan: Patient slowly improving. Advance to regular diet. May shower. Current Visit: Yes Status: Acute Code(s): K35.32 - AC APPENDICITIS W PERF, LOC PERITONITIS, & GANGR, W/O ABSCS SNOMED Code(s): 82286630
--- NOTE | 2024-05-25 12:40 | P.PN ---
Subjective Progress Note Date: 05/25/24 Principal diagnosis: Reason for follow-up is perforated appendicitis intra-abdominal abscess Patient is a 59-year-old female with a past medical history significant for rheumatoid arthritis presenting to the hospital with 3-day history of abdominal pain has been diagnosed with a ruptured appendicitis status post open appendectomy and drainage of the abscess. On today's evaluation that is 05/25/2024, Patient is afebrile this morning and denies any chills, patient mention breathing comfortably and is currently on room air, patient denies any chest pain occasional cough patient did have improvement her nausea as well as abdominal pain and did have bowel movement this afternoon. No lab draw today) normal as of yesterday Objective - Vital Signs Vital signs: Vital Signs Temp 98.6 F 05/25/24 07:09 Pulse 84 05/25/24 07:09 Resp 18 05/25/24 07:09 BP 150/85 05/25/24 07:09 Pulse Ox 93 L 05/25/24 07:09 FiO2 Intake & Output 05/24/24 05/25/24 05/25/24 18:59 06:59 18:59 Output Total 10 Balance -10 Output: Drainage 10 Right Abdomen 10 Other: Voiding Method Toilet # Voids 2 1 - Exam GENERAL DESCRIPTION: Middle-aged female lying in bed in no distress RESPIRATORY SYSTEM: Unlabored breathing , decreased breath sounds at bases HEART: S1 S2 regular rate and rhythm , ABDOMEN: Soft , mild distention and tenderness EXTREMITIES: No edema feet - Labs CBC & Chem 7: 05/24/24 05:40 05/24/24 05:40 Labs: Abnormal Lab Results - Last 24 Hours (Table) 05/24/24 Range/Units 05:40 Anion Gap 13.30 H (4.00-12.00) mmol/L Creatinine 0.5 L (0.6-1.5) mg/dL BUN/Creatinine Ratio 27.20 H (12.00-20.00) Ratio Calcium 8.0 L (8.7-10.3) mg/dL Microbiology - Last 24 Hours (Table) 05/19/24 19:16 Blood Culture - Final Blood 05/19/24 19:16 Blood Culture - Final Blood Assessment and Plan (1) Peritonitis Current Visit: Yes Status: Acute Code(s): K65.9 - PERITONITIS, UNSPECIFIED SNOMED Code(s): 97240298 (2) Intra-abdominal abscess Current Visit: Yes Status: Acute Code(s): K65.1 - PERITONEAL ABSCESS SNOMED Code(s): 73988167 (3) Erythromycin allergy Current Visit: Yes Status: Acute Code(s): Z88.1 - ALLERGY STATUS TO OTHER ANTIBIOTIC AGENTS SNOMED Code(s): 44207704 (4) Appendicitis with perforation Current Visit: Yes Status: Acute Code(s): K35.32 - AC APPENDICITIS W PERF, LOC PERITONITIS, & GANGR, W/O ABSCS SNOMED Code(s): 65793437 Plan: 1patient presenting to hospital with abdominal pain x 3 days and this patient has been diagnosed with a perforated appendicitis and periappendiceal abscess status post open appendectomy and drainage of the abscess we will need to cover for the enteric gram-negative both anaerobes and anaerobes to the likely pathogen 2-patient afebrile and the patient white count has normalized, patient abdominal culture finalized with an E. coli that is a sensitive pathogen and Bacteroides 3-patient slowly clinically improving and will continue Unasyn and transition to oral antibiotics on discharge Dictation was produced using [employer] dictation software. please excuse any grammatical, word or spelling errors. Time with Patient: Less than 30
--- NOTE | 2024-05-25 18:06 | P.PN ---
Subjective Progress Note Date: 05/25/24 (angel charting seen at 1530) Patient is a 59-year-old with obesity and rheumatoid arthritis who presented to the ER for complaints of abdominal pain. CT abdomen and pelvis showed acute appendicitis with localized perforation and early organizing fluid collection. Admitted to surgery. Underwent open active fundectomy on 05/19/2024 with Prevena wound system placed. Patient seen and examined at bedside. Pain is better controlled. Was advanced to a regular diet and eating well. Had 1 small soft bowel movement Vital signs reviewed General: Nontoxic, no distress, appears at stated age Cardiovascular: S1S2 reg, no murmur Lungs: CTA bilateral, no rhonchi, no rales, no accessory muscle use Abdominal: Soft, tender to palpation diffusely, dressing in place over midline incision, no guarding Ext: No gross muscle atrophy, no edema b/l lower extremities, no contractures Neuro: CN II-XI grossly intact, no focal neuro deficits Psych: Alert, oriented, appropriate affect Assessment/Plan: Acute appendicitis with perforation and abscess s/om open appendectomy Bacterial peritonitis-E. coli, Bacteroides, and parvimonas --Unasyn 3 g IV piggyback every 6 hours day #4, prior was treated with Zosyn X 3 days -Required Webster x3 on 05/24, has not needed IV Dilaudid - D/C LR now tolerating diet -Continue with Protonix 40 mg IV daily -Does not take any biologic agents for her rheumatoid arthritis -Surgery note reviewed. Advance to full liquid diet -Infectious disease note reviewed: Unasyn, changed to oral antibiotics on discharge. Class III obesity with BMI 43.3 -Outpatient follow-up Social stressor - with advanced Parkinson's who does require 04/06 care Imaging: None new Data Review: -No new labs for today. Now that eating will repeat BMP and magnesium level in a.m. DVT prophylaxis: Lovenox Thank you for allowing us to participate in the care of this pleasant patient. Do not hesitate to contact us with questions. Someone can be reached from the [facility] hospitalist group all hours of the day at [phone] or via perfect serve. This dictation was prepared using [employer] voice recognition software. Though every attempt is made to correct errors during dictation some may still exist. Objective - Vital Signs Vital signs: Vital Signs Temp 98.0 F 05/25/24 13:18 Pulse 82 05/25/24 13:18 Resp 18 05/25/24 13:18 BP 144/84 05/25/24 13:18 Pulse Ox 95 05/25/24 13:18 FiO2 Intake & Output 05/24/24 05/25/24 05/25/24 18:59 06:59 18:59 Output Total 10 Balance -10 Output: Drainage 10 Right Abdomen 10 Other: Voiding Method Toilet # Voids 2 1 - Labs CBC & Chem 7: 05/24/24 05:40 05/24/24 05:40 Labs: Microbiology - Last 24 Hours (Table) 05/19/24 19:16 Blood Culture - Final Blood 05/19/24 19:16 Blood Culture - Final Blood
[2024-05-26] MEDS: CALCIUM CARBONATE 500 MG CHEWABLE PO STA (00:35)
[2024-05-26] MEDS: CALCIUM CARBONATE 500 MG CHEWABLE PO ONE (05:31)
--- NOTE | 2024-05-26 07:19 | XR ---
EXAMINATION TYPE: XR abdomen complete w decub DATE OF EXAM: 05/26/2024 COMPARISON: None INDICATION: Bloating TECHNIQUE: Abdomen is examined in the upright view. Supine imaging is performed. Left lateral decubit us views obtained. FINDINGS: There are dilated small bowel loops containing air within the abdomen. Multiple air-fluid levels are present. Differential air-fluid levels are present. Findings appear suggestive for partial small pam l obstruction. Small amount of air is within the ascending colon region. Postsurgical skin kelly are present. Drainage catheter is present in the right lower quadrant. Smal l amount of air is within the rectum. No mass effect is evident. No free air is identified Psoas margins are normal. No organomegaly is present. IMPRESSION: 1. Multiple dilated air-filled small bowel loops with differential air-fluid levels. Small amount of colonic bowel gas is present. Findings appear suggestive for partial small bowel obstruction. Ileus i s within the differential. Clinical correlation and follow-up is recommended.
[2024-05-26 09:29] LABS: Blood Urea Nitrogen 9.8 mg/dL (9.0-27.0); Calcium 8.3 mg/dL (8.7-10.3); Carbon Dioxide 19.6 mmol/L (21.6-31.8); Chloride 98 mmol/L (96-109); Glucose 89 mg/dL (70-110); Magnesium 1.8 mg/dL (1.5-2.4); Potassium 4.2 mmol/L (3.5-5.5); Sodium 134 mmol/L (135-145)
[2024-05-26] MEDS: SODIUM CHLORIDE 0.9% 1,000 ML IV SCH (10:07)
[2024-05-26] MEDS: SIMETHICONE 80 MG CHEWABLE PO PRN (10:24)
[2024-05-26] MEDS: METOCLOPRAMIDE 5 MG/ML 2 ML VIAL IVP SCH (10:24)
--- NOTE | 2024-05-26 12:21 | P.PN ---
Subjective Progress Note Date: 05/26/24 CHIEF COMPLAINT: Acute perforated appendicitis with abscess HISTORY OF PRESENT ILLNESS: Patient is postop day #7 status post open appendectomy. Patient tried regular diet yesterday and became more bloated and has been belching. She has had some reflux with the belching. No vomiting. Her diet downgraded to n.p.o. And had abdominal x-ray completed. She is not having any flatus. She did have episode of diarrhea on Dewey since then no stools. Afebrile. MARY drain 10 mL serosanguineous output. Abdominal x-ray reported multiple dilated air-filled small loops. Findings suggest partial small bowel obstruction ileus is within the differential. PHYSICAL EXAM: VITAL SIGNS: Reviewed. GENERAL: no acute distress. ABDOMEN: Soft. Mildly distended. Incision site serosanguineous drainage at the umbilicus NEUROLOGIC: Alert and oriented. Cranial nerves II through XII grossly intact. ASSESSMENT: 1. Acute perforated appendicitis with abscess 2. Leukocytosis improved 3. Postoperative ileus can be an expected finding PLAN: -Scheduled Reglan added for ileus. Encourage patient to increase activity level -Keep patient n.p.o. -Continue abdominal binder -Continue antibiotics per infectious disease -Continue pain management -Resume IV fluids at 50 mL/h -DVT prophylaxis Alfredo Physician Medical Esthetician note has been reviewed by physician. Signing provider agrees with the documented findings, assessment, and plan of care. Objective - Vital Signs Vital signs: Vital Signs Temp 98.1 F 05/26/24 07:07 Pulse 81 05/26/24 07:07 Resp 20 05/26/24 07:07 BP 134/82 05/26/24 07:07 Pulse Ox 95 05/26/24 07:07 FiO2 Intake & Output 05/25/24 05/26/24 05/26/24 18:59 06:59 18:59 Other: Voiding Method Toilet # Voids 3 2 1 - Labs CBC & Chem 7: 05/24/24 05:40 05/26/24 05:05 Labs: Abnormal Lab Results - Last 24 Hours (Table) 05/26/24 Range/Units 05:05 Sodium 134 L (135-145) mmol/L Carbon Dioxide 19.6 L (21.6-31.8) mmol/L Anion Gap 16.40 H (4.00-12.00) mmol/L Creatinine 0.4 L (0.6-1.5) mg/dL BUN/Creatinine Ratio 24.50 H (12.00-20.00) Ratio Calcium 8.3 L (8.7-10.3) mg/dL
[2024-05-26 15:43] VITALS: BMI 43.2
--- NOTE | 2024-05-26 17:52 | P.PN ---
Subjective Progress Note Date: 05/26/24 Principal diagnosis: Reason for follow-up is perforated appendicitis intra-abdominal abscess Patient is a 59-year-old female with a past medical history significant for rheumatoid arthritis presenting to the hospital with 3-day history of abdominal pain has been diagnosed with a ruptured appendicitis status post open appendectomy and drainage of the abscess. On today's evaluation that is 05/26/2024,the patient denies any fever or any chills, patient is breathing comfortably on room air, the patient denies chest pain shortness of breath and no significant cough, patient did have improvement in the nausea has of abdominal pain no bowel movement today. Patient did have a creatinine 0.4 no CBC was done today Objective - Vital Signs Vital signs: Vital Signs Temp 98.1 F 05/26/24 07:07 Pulse 81 05/26/24 07:07 Resp 20 05/26/24 07:07 BP 134/82 05/26/24 07:07 Pulse Ox 95 05/26/24 07:07 FiO2 Intake & Output 05/25/24 05/26/24 05/26/24 18:59 06:59 18:59 Other: Voiding Method Toilet # Voids 3 2 1 - Exam GENERAL DESCRIPTION: Middle-aged female lying in bed in no distress RESPIRATORY SYSTEM: Unlabored breathing , decreased breath sounds at bases HEART: S1 S2 regular rate and rhythm , ABDOMEN: Soft , mild distention and tenderness EXTREMITIES: No edema feet - Labs CBC & Chem 7: 05/24/24 05:40 05/26/24 05:05 Labs: Abnormal Lab Results - Last 24 Hours (Table) 05/26/24 Range/Units 05:05 Sodium 134 L (135-145) mmol/L Carbon Dioxide 19.6 L (21.6-31.8) mmol/L Anion Gap 16.40 H (4.00-12.00) mmol/L Creatinine 0.4 L (0.6-1.5) mg/dL BUN/Creatinine Ratio 24.50 H (12.00-20.00) Ratio Calcium 8.3 L (8.7-10.3) mg/dL Assessment and Plan (1) Peritonitis Current Visit: Yes Status: Acute Code(s): K65.9 - PERITONITIS, UNSPECIFIED SNOMED Code(s): 30869071 (2) Intra-abdominal abscess Current Visit: Yes Status: Acute Code(s): K65.1 - PERITONEAL ABSCESS SNOME D Code(s): 47026836 (3) Erythromycin allergy Current Visit: Yes Status: Acute Code(s): Z88.1 - ALLERGY STATUS TO OTHER ANTIBIOTIC AGENTS SNOMED Code(s): 35942040 (4) Appendicitis with perforation Current Visit: Yes Status: Acute Code(s): K35.32 - AC APPENDICITIS W PERF, LOC PERITONITIS, & GANGR, W/O ABSCS SNOMED Code(s): 20986590 Plan: 1patient presenting to hospital with abdominal pain x 3 days and this patient has been diagnosed with a perforated appendicitis and periappendiceal abscess status post open appendectomy and drainage of the abscess we will need to cover for the enteric gram-negative both anaerobes and anaerobes to the likely pathogen 2-patient afebrile and the patient white count has normalized, patient abdominal culture finalized with an E. coli that is a sensitive pathogen and Bacteroides 3-patient s to continue Unasyn plan is for or antibiotic on discharge once cleared by surgery Dictation was produced using [employer] dictation software. please excuse any grammatical, word or spelling errors. Time with Patient: Less than 30
[2024-05-26] MEDS ORDERED: DEXTROSE 50% SYRINGE 50 ML IVP PRN ×2 (18:10)
--- NOTE | 2024-05-26 18:21 | P.PN ---
Subjective Progress Note Date: 05/26/24 Hospital course: Patient is a 59-year-old with obesity and rheumatoid arthritis who presented to the ER for complaints of abdominal pain. CT abdomen and pelvis showed acute appendicitis with localized perforation and early organizing fluid collection. Admitted to surgery. Underwent open active fundectomy on 05/19/2024 with Prevena wound system placed. Sensation patient had repeat abdominal x-ray showing multiple dilated air-filled small bowel loops suggestive for potential small bowel obstruction versus ileus. Physical exam: Patient seen and examined at bedside. She is postoperative day #7 status post open appendectomy. Patient appeared to be resting comfortably in bed visiting with her daughter at bedside. Patient reports slightly increased abdominal distention/bloating. She reports mild nausea, reflux, recurrent eructation. She denies any episodes of vomiting and reports no flatus or bowel movements since 05/23/2024. Vital signs reviewed General: Nontoxic, no distress, appears at stated age Cardiovascular: Regular rate and rhythm. S1S2 reg, no murmur, gallop, or rub. Lungs: CTA bilateral, no rhonchi, no rales, no accessory muscle use Abdominal: Hypoactive bowel sounds. Abdomen soft distended, tender to palpation diffusely, dressing in place over midline incision, no guarding. Abdominal binder in place. Ext: No gross muscle atrophy, no edema b/l lower extremities, no contractures Neuro: CN II-XI grossly intact, no focal neuro deficits Psych: Alert, oriented, appropriate affect Assessment/Plan: Acute postoperative ileus, rule out partial small bowel obstruction -X-ray abdomen completed this morning and reviewed showing multiple dilated air-filled small bowel loops suggestive for potential obstruction versus ileus. -Started patient on Reglan 10 mg IVP every 6 hours and attempts to assist with improving bowel motility and controlling of nausea. -NPO, pending further recommendations from general surgery team. -Order placed for glycemic protocol with [id number] glucose checks every 6 hours while NPO -Patient started on D5 0.45% normal saline at 75 cc/h, may discontinue once patient is no longer n.p.o. and again tolerating oral intake. -Discussed with patient and encourage ambulation. Acute appendicitis with perforation and abscess s/om open appendectomy Bacterial peritonitis-E. coli, Bacteroides, and parvimonas -Continue Unasyn 3 g IV piggyback every 6 hours day #5, prior was treated with Zosyn X 3 days -Symptomatic care and pain management with Tylenol 650 mg as needed for mild pain/fever, Hoven 5/325 mg every 4 hours as needed for moderate pain, and Dilaudid 1 mg every 3 hours as needed for severe pain. -Continue GI prophylaxis with Protonix 40 mg IV daily -Continue to hold biologic agents for her rheumatoid arthritis -General surgery following, discussed plan of care with general surgery PA. -Infectious disease following, reviewed documentation in chart. Class III obesity with BMI 43.3 -Outpatient follow-up with structured weight management program. Social stressor - with advanced Parkinson's who does require 04/06 care. Consult placed to social work for assistance and references on community resources. Data and Imaging Reviewed: -X-ray abdomen completed this morning and reviewed showing multiple dilated air-filled small bowel loops suggestive for potential obstruction versus ileus. -BMP showing mild hyponatremia with sodium of 134, hypocarbia with bicarb of 19.6 and elevated anion gap of 16.40. Blood glucose 89. Magnesium 1.8. DVT prophylaxis: Lovenox Thank you for allowing us to participate in the care of this pleasant patient. Do not hesitate to contact us with questions. Someone can be reached from the [facility] [place] hospitalist group all hours of the day at [phone] or via [place]. This dictation was prepared using [employer] voice recognition software. Though every attempt is made to correct errors during dictation some may still exist. Patient was seen independently by Nurse Pracitioner. This document was prepared using [employer] dictation software. Please allow for errors in dance entertainer, while rare they do occur. I reviewed the documentation as provided by the KYLE above, who is the original author of this note. I agree with the documented assessment and plan, with the following changes: none Objective - Vital Signs Vital signs: Vital Signs Temp 98.1 F 05/26/24 07:07 Pulse 81 05/26/24 07:07 Resp 20 05/26/24 07:07 BP 134/82 05/26/24 07:07 Pulse Ox 95 05/26/24 07:07 FiO2 Intake & Output 05/25/24 05/26/24 05/26/24 18:59 06:59 18:59 Other: # Voids 3 2 - Labs CBC & Chem 7: 05/24/24 05:40 05/26/24 05:05 Labs: Microbiology - Last 24 Hours (Table) 05/19/24 19:16 Blood Culture - Final Blood 05/19/24 19:16 Blood Culture - Final Blood
[2024-05-26] MEDS: DEXTROSE 5%-0.45% NACL 1,000 ML IV SCH (18:42)
[2024-05-26 18:44] LABS: Glucose,Whole Blood 77 mg/dL (70-110)
[2024-05-27 01:37] LABS: Glucose,Whole Blood 86 mg/dL (70-110)
[2024-05-27 06:14] LABS: Glucose,Whole Blood 123 mg/dL (70-110)
[2024-05-27 08:42] LABS: Basophils # (A) 0.06 X 10*3/uL (0.00-0.10); Basophils % (A) 0.6 %; Eosinophils # (A) 0.22 X 10*3/uL (0.04-0.35); HCT 39.7 % (37.2-46.3); HGB 13.2 g/dL (12.0-15.0); Lymphocytes # (A) 1.68 X 10*3/uL (0.90-5.00); Lymphocytes % (A) 15.5 %; MCH 28.4 pg (27.0-32.0); MCHC 33.2 g/dL (32.0-37.0); MCV 85.4 FL (80.0-97.0); Mean Platelet Volume 9.4 FL (9.5-12.2); Monocytes # (A) 0.67 X 10*3/uL (0.20-1.00); Monocytes % (A) 6.2 %; NRBC Per 100 WBC 0 X 10*3/uL (0.00-0.01); Platelet Count 485 X 10*3/uL (140-440); RBC 4.65 X 10*6/uL (4.10-5.20); RDW 14.3 % (11.5-14.5); WBC 10.82 X 10*3/uL (4.50-10.00)
[2024-05-27 12:12] LABS: BUN/Creat Ratio 11.83 Ratio (12.00-20.00); Blood Urea Nitrogen 7.1 mg/dL (9.0-27.0); Carbon Dioxide 17.3 mmol/L (21.6-31.8); Chloride 99 mmol/L (96-109); Glucose 103 mg/dL (70-110); Magnesium 1.8 mg/dL (1.5-2.4); Sodium 137 mmol/L (135-145)
[2024-05-27 12:34] LABS: Glucose,Whole Blood 107 mg/dL (70-110)
--- NOTE | 2024-05-27 12:45 | CDI ---
Documentation Clarification Form Date: 05/27/2024 From: Jessica Ruiz Phone: [phone] Admit Date: 05/19/2024 02:54:00 PM Patient Name: Aileen Singh Visit Number: [id number] Discharge Date: ATTENTION: The Clinical Documentation Specialists (CDI) and [facility] Coding Staff appreciate your assistance in clarifying documentation. Please respond to the clarification below the line at the bottom and electronically sign. The CDI & [facility] Coding staff will review the response and follow-up if needed. Please note: Queries are made part of the Legal Health Record. If you have any questions, please contact the author of this message via ITS. Dr. Brant Ryder: Acute postoperative ileus is documented in the IM progress note 05/26. Additional clarification regarding the postoperative ileus is requested. Patients Admitting Diagnosis: Acute appendicitis Post-Operative Diagnosis: Perforated acute appendicitis with abscess Procedure performed: 05/19 Open appendectomy History/Risk Factors: 59-year-old female with a history of Rheumatoid arthritis who presents with a 4-day history of right lower quadrant pain Clinical Indicators: 05/25 Surgery PN, Subjective: "She did pass flatus." 05/25 IM PN, Subjective: "Was advanced to a regular diet and eating well. Had 1 small soft bowel movement." 05/26 IM PN, Assessment/Plan: "Acute postoperative ileus, rule out partial small bowel obstruction" 05/26 Surgery PN, Assessment: "3. Postoperative ileus can be an expected finding." 05/19 CT Abdomen and Pelvis, Impression: "Exam positive for acute appendicitis. Complicated by localized perforation. Early organizing fluid collection." Treatment: 05/25 Regular diet, 05/26 NPO, 05/27 Clear liquid diet Please clarify if ileus is a complication of the surgical procedure? [ ] Yes [ ] No [ ] Other, please specify [ ] Unable to determine MTDD
--- NOTE | 2024-05-27 13:28 | P.PN ---
Subjective Progress Note Date: 05/27/24 CHIEF COMPLAINT: Acute perforated appendicitis with abscess HISTORY OF PRESENT ILLNESS: Patient is postop day #8 status post open appendectomy. Patient is having bowel movements. She tolerated the clear liquid diet. She denies any nausea or vomiting. MARY drain 20 mL serosanguineous output. Afebrile. WBC 10.82 Hgb 13.2 Patient seen and examined with Dr. Ryder PHYSICAL EXAM: VITAL SIGNS: Reviewed. GENERAL: no acute distress. ABDOMEN: Soft. Nondistended incision site serosanguineous drainage at the umbilicus NEUROLOGIC: Alert and oriented. Cranial nerves II through XII grossly intact. ASSESSMENT: 1. Acute perforated appendicitis with abscess 2. Leukocytosis 3. Postoperative ileus can be an expected finding PLAN: -Advance diet as tolerated to regular -Discontinue IV fluids -Encourage patient to increase activity level -Continue Reglan for now -Antibiotics per infectious disease -Continue abdominal binder -Anticipate discharge tomorrow -DVT prophylaxis Lovenox Physician Head Setter note has been reviewed by physician. Signing provider agrees with the documented findings, assessment, and plan of care. Objective - Vital Signs Vital signs: Vital Signs Temp 98.0 F 05/27/24 06:52 Pulse 83 05/27/24 06:52 Resp 20 05/27/24 06:52 BP 126/76 05/27/24 06:52 Pulse Ox 95 05/27/24 06:52 FiO2 Intake & Output 05/26/24 05/27/24 05/27/24 18:59 06:59 18:59 Intake Total 0 Output Total 20 Balance -20 Weight 117.934 kg Intake: Oral 0 Output: Drainage 20 Right Abdomen 20 Other: Voiding Method Toilet Toilet Toilet # Voids 2 2 1 # Bowel Movements 2 1 - Labs CBC & Chem 7: 05/27/24 05:07 05/27/24 05:07 Labs: Abnormal Lab Results - Last 24 Hours (Table) 05/27/24 05/27/24 05/27/24 Range/Units 05:07 05:07 06:10 WBC 10.82 H (4.50-10.00) X 10*3/uL Plt Count 485 H (140-440) X 10*3/uL MPV 9.4 L (9.5-12.2) FL Immature Gran # 0.29 H (0.00-0.04) X 10*3/uL Neutrophils # 7.90 H (1.80-7.70) X 10*3/uL Carbon Dioxide 17.3 L (21.6-31.8) mmol/L Anion Gap 20.70 H (4.00-12.00) mmol/L BUN 7.1 L (9.0-27.0) mg/dL BUN/Creatinine Ratio 11.83 L (12.00-20.00) Ratio POC Glucose (mg/dL) 123 H (70-110) mg/dL
--- NOTE | 2024-05-27 15:51 | P.PN ---
Subjective Progress Note Date: 05/27/24 Principal diagnosis: Reason for follow-up is perforated appendicitis intra-abdominal abscess Patient is a 59-year-old female with a past medical history significant for rheumatoid arthritis presenting to the hospital with 3-day history of abdominal pain has been diagnosed with a ruptured appendicitis status post open appendectomy and drainage of the abscess. On today's evaluation that is 05/27/2024,the patient remains to be afebrile, patient is on room air not requiring supplemental oxygen and denies any shortness of breath no chest pain or cough.Patient did have improvement her nausea no vomiting abdominal pain has decreased small bowel movement. Patient white count is 10.82, creatinine 0.6 Objective - Vital Signs Vital signs: Vital Signs Temp 98.5 F 05/27/24 13:49 Pulse 87 05/27/24 13:49 Resp 20 05/27/24 13:49 BP 118/68 05/27/24 13:49 Pulse Ox 92 L 05/27/24 13:49 FiO2 Intake & Output 05/26/24 05/27/24 05/27/24 18:59 06:59 18:59 Intake Total 0 Output Total 20 Balance -20 Weight 117.934 kg Intake: Oral 0 Output: Drainage 20 Right Abdomen 20 Other: Voiding Method Toilet Toilet Toilet # Voids 2 2 1 # Bowel Movements 2 1 - Exam GENERAL DESCRIPTION: Middle-aged female lying in bed in no distress RESPIRATORY SYSTEM: Unlabored breathing , decreased breath sounds at bases HEART: S1 S2 regular rate and rhythm , ABDOMEN: Soft , mild distention and tenderness EXTREMITIES: No edema feet - Labs CBC & Chem 7: 05/27/24 05:07 05/27/24 05:07 Labs: Abnormal Lab Results - Last 24 Hours (Table) 05/27/24 05/27/24 05/27/24 Range/Units 05:07 05:07 06:10 WBC 10.82 H (4.50-10.00) X 10*3/uL Plt Count 485 H (140-440) X 10*3/uL MPV 9.4 L (9.5-12.2) FL Immature Gran # 0.29 H (0.00-0.04) X 10*3/uL Neutrophils # 7.90 H (1.80-7.70) X 10*3/uL Carbon Dioxide 17.3 L (21.6-31.8) mmol/L Anion Gap 20.70 H (4.00-12.00) mmol/L BUN 7.1 L (9.0-27.0) mg/dL BUN/Creatinine Ratio 11.83 L (12.00-20.00) Ratio POC Glucose (mg/dL) 123 H (70-110) mg/dL Assessment and Plan (1) Peritonitis Current Visit: Yes Status: Acute Code(s): K65.9 - PERITONITIS, UNSPECIFIED SNOMED Code(s): 06144440 (2) Intra-abdominal abscess Current Visit: Yes Status: Acute Code(s): K65.1 - PERITONEAL ABSCESS SNOMED Code(s): 82676530 (3) Erythromycin allergy Current Visit: Yes Status: Acute Code(s): Z88.1 - ALLERGY STATUS TO OTHER ANTIBIOTIC AGENTS SNOMED Code(s): 08860842 (4) Appendicitis with perforation Current Visit: Yes Status: Acute Code(s): K35.32 - AC APPENDICITIS W PERF, LOC PERITONITIS, & GANGR, W/O ABSCS SNOMED Code(s): 57638731 Plan: 1patient presenting to hospital with abdominal pain x 3 days and this patient has been diagnosed with a perforated appendicitis and periappendiceal abscess st atus post open appendectomy and drainage of the abscess we will need to cover for the enteric gram-negative both anaerobes and anaerobes to the likely pathogen 2-patient afebrile and the patient white count has normalized, patient abdominal culture finalized with an E. coli that is a sensitive pathogen and Bacteroides 3-patient is slowly clinical improving and will continue Unasyn will transition to oral antibiotic on discharge Dictation was produced using [employer] dictation software. please excuse any grammatical, word or spelling errors. Time with Patient: Less than 30
--- NOTE | 2024-05-27 16:36 | P.PN ---
Subjective Progress Note Date: 05/27/24 Hospital course: Patient is a 59-year-old with obesity and rheumatoid arthritis who presented to the ER for complaints of abdominal pain. CT abdomen and pelvis showed acute appendicitis with localized perforation and early organizing fluid collection. Admitted to surgery. Underwent open active fundectomy on 05/19/2024 with Prevena wound system placed. On 05/26/2024 patient had repeat abdominal x-ray showing multiple dilated air-filled small bowel loops suggestive for potential small bowel obstruction versus ileus. Physical exam: Patient seen and examined at bedside. She is postoperative day #8 status post open appendectomy. Patient reports since being started on Reglan and having multiple bowel movements throughout the night and morning. She denies having any nausea or vomiting and appears to be doing well. Vital signs reviewed General: Nontoxic, no distress, appears at stated age Cardiovascular: Regular rate and rhythm. S1S2 reg, no murmur, gallop, or rub. Lungs: CTA bilateral, no rhonchi, no rales, no accessory muscle use Abdominal: Bowel sounds x 4 quadrants. Abdomen soft with Abdominal binder in place. Ext: No gross muscle atrophy, no edema b/l lower extremities, no contractures Neuro: CN II-XI grossly intact, no focal neuro deficits Psych: Alert, oriented, appropriate affect Assessment/Plan: Acute postoperative ileus, resolved -X-ray abdomen completed this morning and reviewed showing multiple dilated air- filled small bowel loops suggestive for potential obstruction versus ileus. -Continue Reglan 10 mg IVP every 6 hours as it seems to have been successful in promoting bowel motility. Patient reports multiple small bowel movements throughout the night. -Diet was increased to clear liquid diet this morning -Patient maintains clear liquid diet, okay to DC IV fluids and Accu-Cheks. -Discussed with patient and encourage ambulation. Acute appendicitis with perforation and abscess s/om open appendectomy Bacterial peritonitis-E. coli, Bacteroides, and parvimonas -Continue Unasyn 3 g IV piggyback every 6 hours day #5, prior was treated with Zosyn X 3 days -Symptomatic care and pain management with Tylenol 650 mg as needed for mild pain/fever, Oto 5/325 mg every 4 hours as needed for moderate pain, and Dilaudid 1 mg every 3 hours as needed for severe pain. -Continue GI prophylaxis with Protonix 40 mg IV daily -Continue to hold biologic agents for her rheumatoid arthritis -General surgery following, discussed plan of care with general surgery PA. -Infectious disease following, reviewed documentation in chart. Class III obesity with BMI 43.3 -Outpatient follow-up with structured weight management program. Social stressor - with advanced Parkinson's who does require 04/06 care. Consult placed to social work for assistance and references on community resources. Data and Imaging Reviewed: -Morning labs reviewed. CBC showing mild leukocytosis with WBC count of 10.82 and thrombocytosis with platelet count of 485. BMP showing hypocarbia with bicarb of 17.3 and elevated anion gap of 20.7. Blood glucose 103. Magnesium 1.8. -Vital signs reviewed. Blood pressure 126/76, heart rate 83, respiratory rate 20, temp 98.0 F, and SpO2 of 95% on room air. DVT prophylaxis: Lovenox Thank you for allowing us to participate in the care of this pleasant patient. Do not hesitate to contact us with questions. Someone can be reached from the [facility] hospitalist group all hours of the day at [phone] or via [employer] This dictation was prepared using [employer] voice recognition software. Though every attempt is made to correct errors during dictation some may still exist. Patient was seen independently by Nurse Pracitioner. This document was prepared using [employer] dictation software. Please allow for errors in general merchandise manager, while rare they do occur. Milad Lopez NP rendered care for this patient independently, reviewed the findings and plan as documented in the note above. I did not physically speak with or examine the patient on this date. Objective - Vital Signs Vital signs: Vital Signs Temp 98.0 F 05/27/24 06:52 Pulse 83 05/27/24 06:52 Resp 20 05/27/24 06:52 BP 126/76 05/27/24 06:52 Pulse Ox 95 05/27/24 06:52 FiO2 Intake & Output 05/26/24 05/27/24 05/27/24 18:59 06:59 18:59 Weight 117.934 kg Other: Voiding Method Toilet Toilet # Voids 2 2 # Bowel Movements 2 - Labs CBC & Chem 7: 05/27/24 05:07 05/27/24 05:07 Labs: Abnormal Lab Results - Last 24 Hours (Table) 05/26/24 05/27/24 05/27/24 Range/Units 05:05 05:07 06:10 WBC 10.82 H (4.50-10.00) X 10*3/uL Plt Count 485 H (140-440) X 10*3/uL MPV 9.4 L (9.5-12.2) FL Immature Gran # 0.29 H (0.00-0.04) X 10*3/uL Neutrophils # 7.90 H (1.80-7.70) X 10*3/uL Sodium 134 L (135-145) mmol/L Carbon Dioxide 19.6 L (21.6-31.8) mmol/L Anion Gap 16.40 H (4.00-12.00) mmol/L Creatinine 0.4 L (0.6-1.5) mg/dL BUN/Creatinine Ratio 24.50 H (12.00-20.00) Ratio POC Glucose (mg/dL) 123 H (70-110) mg/dL Calcium 8.3 L (8.7-10.3) mg/dL
[2024-05-27 18:27] LABS: Glucose,Whole Blood 116 mg/dL (70-110)
[2024-05-28 05:43] LABS: Glucose,Whole Blood 110 mg/dL (70-110)
[2024-05-28 07:37] VITALS: BP 119/68; PULSE 87; RESP 16; TEMP 98.1
[2024-05-28 08:40] LABS: HGB 11.9 g/dL (12.0-15.0); MCH 28.5 pg (27.0-32.0); MCHC 33.1 g/dL (32.0-37.0); MCV 86.1 FL (80.0-97.0); Mean Platelet Volume 9.6 FL (9.5-12.2); NRBC Per 100 WBC 0 X 10*3/uL (0.00-0.01); Platelet Count 408 X 10*3/uL (140-440); RBC 4.18 X 10*6/uL (4.10-5.20); RDW 14.5 % (11.5-14.5); WBC 8.41 X 10*3/uL (4.50-10.00)
[2024-05-28 09:24] LABS: Blood Urea Nitrogen 8.1 mg/dL (9.0-27.0); Calcium 8.3 mg/dL (8.7-10.3); Carbon Dioxide 21.9 mmol/L (21.6-31.8); Chloride 102 mmol/L (96-109); Glucose 104 mg/dL (70-110); Magnesium 1.7 mg/dL (1.5-2.4); Potassium 3.6 mmol/L (3.5-5.5); Sodium 139 mmol/L (135-145)
[2024-05-28] MEDS: MAGNESIUM SULFATE-D5W PMX 1 GM in DEXTROSE/WATER 1 100ML.BAG IVPB SCH (10:20)
[2024-05-28 11:52] LABS: Glucose,Whole Blood 121 mg/dL (70-110)
--- NOTE | 2024-05-28 13:40 | P.DS ---
Providers Date of admission: 05/19/24 14:54 Expected date of discharge: 05/28/24 Attending physician: Brant Ryder Consults: 05/19/24 14:32 Consult Physician Urgent Consulting Provider: Alfreda Fung Consult Reason/Comments: Perforated appendicitis Do you want consulting provider notified?: Yes Consult Physician Urgent Consulting Provider: Kj Soares Consult Reason/Comments: Medical management, surgical clearance Do you want consulting provider notified?: Yes Primary care physician: Otoniel Del Valle Hospital Course: Discharge diagnosis 1. Acute perforated appendicitis with abscess 2. Postoperative ileus can be an expected finding Hospital course This is a 59-year-old female who presented with a 4-day history of bilateral lower quadrant abdominal pain. She was found to have evidence of appendicitis on CAT scan with possible perforation. Patient is status post open appendectomy for acute perforated appendicitis with abscess. Patient did develop a pos toperative ileus during her stay. At this time she is having bowel movements. Tolerating diet. Afebrile. She has been up and ambulating. She is stable for discharge. She will be discharged home with antibiotics. Please refer to chart for any further details. Physician Seismic Plotter note has been reviewed by physician. Signing provider agrees with the documented findings, assessment, and plan of care. Patient Condition at Discharge: Stable Plan - Discharge Summary Discharge Rx Participant: No New Discharge Prescriptions: New Ibuprofen [Motrin] 600 mg PO Q8HR PRN #30 tab PRN Reason: Pain Acetaminophen Tab [Tylenol] 1,000 mg PO Q6HR PRN #30 tablet PRN Reason: Pain Amoxic-Pot Clav 875-125Mg [Augmentin 875-125] 1 tab PO Q12HR 10 Days #20 tab No Action Ibuprofen [Motrin Ib] 200 - 800 mg PO Q8H PRN PRN Reason: Pain Discharge Medication List Ibuprofen [Motrin Ib] 200 - 800 mg PO Q8H PRN 05/19/24 [History] Acetaminophen Tab [Tylenol] 1,000 mg PO Q6HR PRN #30 tablet 05/28/24 [Rx] Amoxic-Pot Clav 875-125Mg [Augmentin 875-125] 1 tab PO Q12HR 10 Days #20 tab 05/28/24 [Rx] Ibuprofen [Motrin] 600 mg PO Q8HR PRN #30 tab 05/28/24 [Rx] Follow up Appointment(s)/Referral(s): Otoniel Del Valle MD [Primary Care Provider] - 1-2 days Brant Ryder MD [STAFF PHYSICIAN] - 1 Week Activity/Diet/Wound Care/Special Instructions: No lifting over 10 pounds Shower daily. No soaking or tub baths for 2 weeks Very light activity until you are reevaluated at your follow up appointment with your surgeon Discharge Disposition: HOME WITH HOME HEALTH SERVICES
--- NOTE | 2024-05-28 16:31 | P.PN ---
Subjective Progress Note Date: 05/28/24 Hospital course: Patient is a 59-year-old with obesity and rheumatoid arthritis who presented to the ER for complaints of abdominal pain. CT abdomen and pelvis showed acute appendicitis with localized perforation and early organizing fluid collection. Admitted to surgery. Underwent open active fundectomy on 05/19/2024 with Prevena wound system placed. On 05/26/2024 patient had repeat abdominal x-ray showing multiple dilated air-filled small bowel loops suggestive for potential small bowel obstruction versus ileus. Physical exam: Patient seen and examined at bedside. She is postoperative day #9 status post open appendectomy. Patient reports feeling great this morning. She is tolerating oral intake and denies having any episodes of nausea or vomiting. She reports normal soft formed bowel movement. Reports postoperative pain is controlled and has been ambulating to and from bathroom and in room. She reports looking forward to discharge today. Vital signs reviewed General: Nontoxic, no distress, appears at stated age Cardiovascular: Regular rate and rhythm. S1S2 reg, no murmur, gallop, or rub. Lungs: CTA bilateral, no rhonchi, no rales, no accessory muscle use Abdominal: Bowel sounds x 4 quadrants. Abdomen soft with Abdominal binder in place. Ext: No gross muscle atrophy, no edema b/l lower extremities, no contractures Neuro: CN II-XI grossly intact, no focal neuro deficits Psych: Alert, oriented, appropriate affect Assessment/Plan: Acute postoperative ileus, resolved -X-ray abdomen completed this morning and reviewed showing multiple dilated air- filled small bowel loops suggestive for potential obstruction versus ileus. -Continue Reglan 10 mg IVP every 6 hours as it seems to have been successful in promoting bowel motility. Patient reports multiple small bowel movements throughout the night. -Diet was increased to clear liquid diet this morning -Patient maintains clear liquid diet, okay to DC IV fluids and Accu-Cheks. -Discussed with patient and encourage ambulation. Acute appendicitis with perforation and abscess s/om open appendectomy Bacterial peritonitis-E. coli, Bacteroides, and parvimonas -Continue Unasyn 3 g IV piggyback every 6 hours with plans for discharge home on Augmentin 875/125 mg tablets for an additional 10 days per recommendations of infectious disease. -Symptomatic care and pain management with Tylenol 650 mg as needed for mild pain/fever, [place] 5/325 mg every 4 hours as needed for moderate pain, and Dilaudid 1 mg every 3 hours as needed for severe pain. -Continue GI prophylaxis with Protonix 40 mg IV daily -Continue to hold biologic agents for her rheumatoid arthritis -General surgery following, discussed plan of care with general surgery PA whom reports plans for discharge later today. -Infectious disease following, reviewed documentation in chart. Class III obesity with BMI 43.3 -Outpatient follow-up with structured weight management program. Social stressor - with advanced Parkinson's who does require / care. Consult placed to social work for assistance and references on community resources. Data and Imaging Reviewed: -Morning labs reviewed. CBC showing stable normocytic anemia with hemoglobin of 11.9 and improvement of high anion gap metabolic acidosis with chloride of 102, bicarb 21.9, and anion gap of 15.10. Renal function unremarkable. Glucose 104. Magnesium was slightly low at 1.7 and orders were placed for replacement magnesium sulfate 2 g IVPB x 1 dose. -Vital signs reviewed and stable. Blood pressure 119/68, heart rate 87, respiratory rate 16, temp 98.1 F, and SpO2 of 97% on room air. Patient is medically optimized for discharge once magnesium replacement is completed and discharge orders placed by primary admitting general surgery team. Per recommendations of infectious disease, patient to be discharged home on Augmentin 875/125 mg tablets every 12 hours x 10 days. Thank you for allowing us to participate in the care of this pleasant patient. Do not hesitate to contact us with questions. Someone can be reached from the [facility] hospitalist group all hours of the day at [phone] or via [employer]. This dictation was prepared using [employer] voice recognition software. Though every attempt is made to correct errors during dictation some may still exist. Patient was seen independently by Nurse Pracitioner. This document was prepared using [employer] dictation software. Please allow for errors in [employer] professor, while rare they do occur Milad Lopez NP rendered care for this patient independently, reviewed the findings and plan as documented in the note above. I did not physically speak with or examine the patient on this date. Objective - Vital Signs Vital signs: Vital Signs Temp 98.1 F 05/28/24 06:56 Pulse 87 05/28/24 06:56 Resp 16 05/28/24 06:56 BP 119/68 05/28/24 06:56 Pulse Ox 97 05/28/24 06:56 FiO2 Intake & Output 05/27/24 05/28/24 05/28/24 18:59 06:59 18:59 Intake Total 0 Output Total 20 Balance -20 Intake: Oral 0 Output: Drainage 20 Right Abdomen 20 Other: Voiding Method Toilet Toilet # Voids 3 1 # Bowel Movements 1 - Labs CBC & Chem 7: 05/28/24 04:02 05/28/24 04:02 Labs: Abnormal Lab Results - Last 24 Hours (Table) 05/27/24 05/27/24 05/27/24 Range/Units 05:07 05:07 18:12 WBC 10.82 H (4.50-10.00) X 10*3/uL Plt Count 485 H (140-440) X 10*3/uL MPV 9.4 L (9.5-12.2) FL Immature Gran # 0.29 H (0.00-0.04) X 10*3/uL Neutrophils # 7.90 H (1.80-7.70) X 10*3/uL Carbon Dioxide 17.3 L (21.6-31.8) mmol/L Anion Gap 20.70 H (4.00-12.00) mmol/L BUN 7.1 L (9.0-27.0) mg/dL BUN/Creatinine Ratio 11.83 L (12.00-20.00) Ratio POC Glucose (mg/dL) 116 H (70-110) mg/dL
--- NOTE | 2024-05-28 19:44 | P.PN ---
Subjective Progress Note Date: 05/28/24 Principal diagnosis: Reason for follow-up is perforated appendicitis intra-abdominal abscess Patient is a 59-year-old female with a past medical history significant for rheumatoid arthritis presenting to the hospital with 3-day history of abdominal pain has been diagnosed with a ruptured appendicitis status post open appendectomy and drainage of the abscess. On today's evaluation that is 05/28/2024, the patient continues to be afebrile, the patient is on room air and breathing comfortably, the Pt denies having any chest pain or cough, the patient denies having any abdominal pain no vomiting or any diarrhea, mention feeling better. Patient white count is 8.41, creatinine 0.5 abdominal culture with Bacteroides E. coli Objective - Vital Signs Vital signs: Vital Signs Temp 98.1 F 05/28/24 06:56 Pulse 87 05/28/24 06:56 Resp 16 05/28/24 06:56 BP 119/68 05/28/24 06:56 Pulse Ox 97 05/28/24 06:56 FiO2 Intake & Output 05/27/24 05/28/24 05/28/24 18:59 06:59 18:59 Intake Total 0 Output Total 20 Balance -20 Intake: Oral 0 Output: Drainage 20 Right Abdomen 20 Other: Voiding Method Toilet Toilet # Voids 3 1 # Bowel Movements 1 - Exam GENERAL DESCRIPTION: Middle-aged female lying in bed in no distress RESPIRATORY SYSTEM: Unlabored breathing , decreased breath sounds at bases HEART: S1 S2 regular rate and rhythm , ABDOMEN: Soft , mild distention and tenderness EXTREMITIES: No edema feet - Labs CBC & Chem 7: 05/28/24 04:02 05/28/24 04:02 Labs: Abnormal Lab Results - Last 24 Hours (Table) 05/27/24 05/28/24 05/28/24 Range/Units 18:12 04:02 04:02 Hgb 11.9 L (12.0-15.0) g/dL Hct 36.0 L (37.2-46.3) % Anion Gap 15.10 H (4.00-12.00) mmol/L BUN 8.1 L (9.0-27.0) mg/dL Creatinine 0.5 L (0.6-1.5) mg/dL POC Glucose (mg/dL) 116 H (70-110) mg/dL Calcium 8.3 L (8.7-10.3) mg/dL 05/28/24 Range/Units 11:51 Hgb (12.0-15.0) g/dL Hct (37.2-46.3) % Anion Gap (4.00-12.00) mmol/L BUN (9.0-27.0) mg/dL Creatinine (0.6-1.5) mg/dL POC Glucose (mg/dL) 121 H (70-110) mg/dL Calcium (8.7-10.3) mg/dL Assessment and Plan (1) Peritonitis Status: Acute Code(s): K65.9 - PERITONITIS, UNSPECIFIED SNOMED Code(s): 10273986 (2) Intra-abdominal abscess Status: Acute Code(s): K65.1 - PERITONEAL ABSCESS SNOMED Code(s): 11884143 (3) Erythromycin allergy Status: Acute Code(s): Z88.1 - ALLERGY STATUS TO OTHER ANTIBIOTIC AGENTS SNOMED Code(s): 64560412 (4) Appendicitis with perforation Status: Acute Code(s): K35.32 - AC APPENDICITIS W PERF, LOC PERITONITIS, & GANGR, W/O ABSCS SNOMED Code(s): 60931870 Plan: 1patient presenting to hospital with abdominal pain x 3 days and this patient has been diagnosed with a perforated appendicitis and periappendiceal abscess status post open appendectomy and drainage of the abscess we will need to cover for the enteric gram-negative both anaerobes and anaerobes to the likely pathogen 2-patient afebrile and the patient white count has normalized, patient abdominal culture finalized with an E. coli that is a sensitive pathogen and Bacteroides 3-patient has shown clinical improvement patient will finish therapy with oral Augmentin and close outpatient follow-up discussed with LETTERER for surgical team Dictation was produced using [employer] dictation software. please excuse any grammatical, word or spelling errors. Time with Patient: Less than 30
== END 2024-05-28 14:14 | disposition home health service (06) | DRG 398 ==
LOC: EC 11:28 → 4SSUR 14:54
PROVIDERS: ADMIT Surgery; ATTEND Surgery
PROC: 0WJG4ZZ Inspection of Peritoneal Cavity, Percutaneous Endoscopic Approach (ICD-10-PCS; principal; 2024-05-19 10:55)
PROC: 0DTJ0ZZ Resection of Appendix, Open Approach (ICD-10-PCS; principal; 2024-05-19 10:55)
PROC: 05HF33Z Insertion of Infusion Device into Left Cephalic Vein, Percutaneous Approach (ICD-10-PCS; 2024-05-26 19:05)
DX: K35.33 Acute appendicitis with perforation, localized peritonitis, and gangrene, with abscess (principal); E87.1 Hypo-osmolality and hyponatremia; E87.20 Acidosis, unspecified; K56.7 Ileus, unspecified; Z68.41 Body mass index [BMI] 40.0-44.9, adult; M06.9 Rheumatoid arthritis, unspecified; E66.01 Morbid (severe) obesity due to excess calories; B96.20 Unspecified Escherichia coli [E. coli] as the cause of diseases classified elsewhere; D64.9 Anemia, unspecified; D75.839 Thrombocytosis, unspecified; Z71.3 Dietary counseling and surveillance; Z88.1 Allergy status to other antibiotic agents; Z79.899 Other long term (current) drug therapy; Z53.31 Laparoscopic surgical procedure converted to open procedure
CPT/HCPCS: 36410; 36415; 74021; 74177; 76937; 80048; 80053; 81001; 82150; 82570; 83605; 83690; 83735; 85025; 85027; 85610; 85730; 87040; 87070; 87075; 87077; 87086; 87186; 87205; 88304; 96361; 96374; 96375; 99285